=== PATIENT | female | born 1985 | race Caucasian/White ===

== ENCOUNTER 2017-11-03 16:12 | Inpatient (IN) | payer OTHER, MEDICAID ==
[2017-11-03] MEDS ORDERED: Lidocaine 1% 50 ML MDV INJECT PRN (16:46)
[2017-11-03] MEDS ORDERED: Sodium Chloride 0.9% 10 ML Syringe FLUSH PRN (16:46)
[2017-11-03] MEDS ORDERED: Nalbuphine 20 MG/1 ML Amp IVPUSH PRN (16:46)
[2017-11-03] MEDS ORDERED: Misoprostol 25 MCG (1/4 of 100 MCG) Tab VAG ONE ×2 (17:00→21:30)
[2017-11-03] MEDS ORDERED: Nalbuphine 20 MG/ML 1 ML Syringe IVPUSH PRN (17:15)
[2017-11-03] MEDS ORDERED: Penicillin G Potassium 5 MILLUNITS in Sodium Chloride 0.9% 100 ML IV SCH (20:00)
[2017-11-03] MEDS ORDERED: Penicillin G Potassium 5 MILLUNITS in Sodium Chloride 0.9% 100 ML IV ONE (20:00)
[2017-11-03] MEDS ORDERED: Oxytocin/Lactated Ringers 10 UNIT/1,000 ML BAG IV ONE (21:36)
[2017-11-03] MEDS ORDERED: Oxytocin/Lactated Ringers 10 UNIT/1,000 ML BAG IV SCH (21:42)
[2017-11-03] MEDS: Lactated Ringers 1,000 ML IV SCH (21:46)
[2017-11-04] MEDS: Penicillin G Potassium 2.5 MILLUNITS in Sodium Chloride 0.9% 100 ML IV SCH ×6 (00:15→19:56)
[2017-11-04] MEDS ORDERED: Oxytocin/Lactated Ringers 10 UNIT/1,000 ML BAG IV SCH ×2 (01:00)
[2017-11-04] MEDS ORDERED: ePHEDrine 50 MG/ML SDV IVPUSH PRN (01:01)
[2017-11-04] MEDS ORDERED: diphenhydrAMINE 50 MG/ML SDV IVPUSH PRN (01:01)
[2017-11-04] MEDS: Lactated Ringers 1,000 ML IV SCH ×2 (01:32→16:09)
[2017-11-04] MEDS: fentaNYL 100 MCG/2 ML SDV EPIDUR PRN ×2 (01:35→15:12)
[2017-11-04] MEDS: Bupivacaine/fentaNYL/NS 100 ML Bag EPIDUR SCH ×3 (01:35→20:04)
--- NOTE | 2017-11-04 01:53 | PCM.PREANE ---
Preanesthetic Assessment - Procedure Proposed Procedure: ANIBAL - Anesthesia/Transfusion/Family Hx Anesthesia History: No Prior Anesthesia Family History of Anesthesia Reaction: No Transfusion History: No Prior Transfusion(s) Additional History: Patient stated she has spinal stenosis with a herniated lumbar disc diagnosed in 2000. Denies any radiculopathies. - Review of Systems General: No Symptoms Pulmonary: No Symptoms Cardiovascular: No Symptoms Gastrointestinal: No Symptoms Neurological: No Symptoms Other: Reports: None - Physical Assessment NPO Status Date: 11/03/17 NPO Status Time: 21:00 Pulse: 83 Respiratory Rate: 20 Blood Pressure: 144/91 Vital Signs: Last Vital Signs Temp 36.4 C 11/03/17 16:47 Pulse 83 11/03/17 22:30 Resp 20 11/03/17 16:47 BP 144/91 H 11/03/17 21:30 Pulse Ox Height: 1.77 m Weight: 122.924 kg Mental Status: Alert & Oriented x3 Airway Class: Mallampati = 1 Dentition: Reports: Normal Dentition Thyro-Mental Finger Breadths: 3 Mouth Opening Finger Breadths: 3 ROM/Head Extension: Full Lungs: Clear to Auscultation, Normal Respiratory Effort Cardiovascular: Regular Rate, Regular Rhythm - Lab Values: Laboratory Last Values WBC 9.28 K/mm3 (3.98-10.04) 11/03/17 17:15 RBC 4.14 M/mm3 (3.98-5.22) 11/03/17 17:15 Hgb 11.5 gm/L (11.2-15.7) 11/03/17 17:15 Hct 34.8 % (34.1-44.9) 11/03/17 17:15 MCV 84.1 fl (79.4-94.8) 11/03/17 17:15 MCH 27.8 pg (25.6-32.2) 11/03/17 17:15 MCHC 33.0 g/dl (32.2-35.5) 11/03/17 17:15 RDW Std Deviation 43.2 fL (36.4-46.3) 11/03/17 17:15 Plt Count 144 K/mm3 (182-369) L 11/03/17 17:15 MPV 13.4 fl (9.4-12.3) H 11/03/17 17:15 Neut % (Auto) 73.2 % (34.0-71.1) H 11/03/17 17:15 Lymph % (Auto) 20.2 % (19.3-51.7) 11/03/17 17:15 [place]pherson % (Auto) 5.4 % (4.7-12.5) 11/03/17 17:15 Eos % (Auto) 0.8 (0.7-5.8) 11/03/17 17:15 Baso % (Auto) 0.2 % (0.1-1.2) 11/03/17 17:15 Neut # (Auto) 6.80 K/mm3 (1.56-6.13) H 11/03/17 17:15 Lymph # (Auto) 1.87 K/mm3 (1.18-3.74) 11/03/17 17:15 [place]pherson # (Auto) 0.50 K/mm3 (0.24-0.36) H 11/03/17 17:15 Eos # (Auto) 0.07 K/mm3 (0.04-0.36) 11/03/17 17:15 Baso # (Auto) 0.02 K/mm3 (0.01-0.08) 11/03/17 17:15 PT 9.3 SECONDS (9.5-12.1) L 11/03/17 17:15 INR < 0.93 11/03/17 17:15 APTT 24 SECONDS (24-31) 11/03/17 17:15 Fibrinogen 470 mg/dL (187-446) H 11/03/17 17:15 Fibrin Degrad Products < 5 ug/ml ug/mL (<5) 11/03/17 17:15 BUN 14 mg/dL (7-18) 11/03/17 17:15 Creatinine 0.8 mg/dL (0.55-1.02) 11/03/17 17:15 Est Cr Clr Drug Dosing 108.33 mL/min 11/03/17 17:15 Estimated GFR (MDRD) > 60 mL/min (>60) 11/03/17 17:15 Uric Acid 5.9 mg/dL (2.6-6.0) 11/03/17 17:15 AST 13 U/L (15-37) L 11/03/17 17:15 ALT 14 U/L (14-59) 11/03/17 17:15 Lactate Dehydrogenase 159 U/L (81-234) 11/03/17 17:15 Urine Color Yellow (Yellow) 11/03/17 16:30 Urine Appearance Clear (Clear) 11/03/17 16:30 Urine pH 6.0 (5.0-8.0) 11/03/17 16:30 Ur Specific [place] > or = 1.030 (1.005-1.030) 11/03/17 16:30 Urine Protein 2+ (Negative) H 11/03/17 16:30 Urine Glucose (UA) Negative (Negative) 11/03/17 16:30 Urine Ketones Negative (Negative) 11/03/17 16:30 Urine Occult Blood Negative (Negative) 11/03/17 16:30 Urine Nitrite Negative (Negative) 11/03/17 16:30 Urine Bilirubin Negative (Negative) 11/03/17 16:30 Urine Urobilinogen 0.2 (0.2-1.0) 11/03/17 16:30 Ur Leukocyte Esterase Negative (Negative) 11/03/17 16:30 Urine RBC 0-5 /hpf (0-5) 11/03/17 16:30 Urine WBC 0-5 /hpf (0-5) 11/03/17 16:30 Ur Epithelial Cells 10-20 /hpf (0-5) H 11/03/17 16:30 Urine Bacteria Rare /hpf (FEW) 11/03/17 16:30 Urine Mucus Not seen /hpf (FEW) 11/03/17 16:30 Urine Opiates Screen Negative (NEGATIVE) 11/03/17 16:30 Ur Buprenorphine Scrn Negative (NEGATIVE) 11/03/17 16:30 Ur Oxycodone Screen Negative (NEGATIVE) 11/03/17 16:30 Urine Methadone Screen Negative (NEGATIVE) 11/03/17 16:30 Ur Propoxyphene Screen Negative (NEGATIVE) 11/03/17 16:30 Ur Barbiturates Screen Negative (NEGATIVE) 11/03/17 16:30 Ur Tricyclics Screen Negative (NEGATIVE) 11/03/17 16:30 Ur Phencyclidine Scrn Negative (NEGATIVE) 11/03/17 16:30 Ur Amphetamine Screen Negative (NEGATIVE) 11/03/17 16:30 U Methamphetamines Scrn Negative (NEGATIVE) 11/03/17 16:30 U Benzodiazepines Scrn Negative (NEGATIVE) 11/03/17 16:30 U Cocaine Metab Screen Negative (NEGATIVE) 11/03/17 16:30 U Marijuana (THC) Screen Negative (NEGATIVE) 11/03/17 16:30 - Allergies Allergies/Adverse Reactions: Allergies Allergy/AdvReac Type Severity Reaction Status Date / Time No Known Allergies Allergy Verified 10/03/17 17:43 - Blood Blood Available: No Product(s) Available: None - Anesthesia Plan Pre-Op Medication Ordered: None - Acknowledgements Anesthesia Type Planned: Epidural Pt an Appropriate Candidate for the Planned Anesthesia: Yes Alternatives and Risks of Anesthesia Discussed w Pt/Guardian: Yes Pt/Guardian Understands and Agrees with Anesthesia Plan: Yes PreAnesthesia Questionnaire - Past Health History Medical/Surgical History: Denies 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 [No Known Home Meds] 11/03/17 [History] - CURRENT (IN HOUSE) MEDS Current Meds: Current Medications Diphenhydramine HCl (Benadryl) 25 mg IVPUSH Q6H PRN PRN Reason: Pruritis Ephedrine Sulfate (Ephedrine Sulfate) 5 mg IVPUSH ASDIRECTED PRN PRN Reason: Hypotension Fentanyl (Sublimaze) 100 mcg EPIDUR Q3H PRN PRN Reason: Pain Last Admin: 11/04/17 01:35 Dose: 100 mcg Fentanyl/Bupivacaine HCl (Fentanyl/Bupivacaine/Ns 2 Mcg-0.125% 100 Ml) 100 ml EPIDUR ASDIRECTED JUSTO Last Admin: 11/04/17 01:35 Dose: 100 ml Lactated Ringer's (Ringers, Lactated) 1,000 mls @ 100 mls/hr IV ASDIRECTED JUSTO Last Admin: 11/04/17 01:32 Dose: 100 mls/hr Oxytocin/Lactated Ringer's (Pitocin In Lr 10 Units/1,000 Ml) 10 unit in 1,000 mls @ 500 mls/hr IV .CONTINUOUS JUSTO Penicillin G Potassium 2.5 (millunits/ Sodium Chloride) 100 mls @ 55 mls/hr IV Q4H JUSTO Last Admin: 11/04/17 00:15 Dose: 55 mls/hr Oxytocin/Lactated Ringer's (Pitocin In Lr 10 Units/1,000 Ml) 10 unit in 1,000 mls @ 12 mls/hr IV TITRATE JUSTO; Protocol Last Titration: 11/04/17 00:55 Dose: 10 munits/min, 60 mls/hr Lidocaine HCl (Xylocaine 1%) 50 ml INJECT ASDIRECTED PRN PRN Reason: Pain Nalbuphine HCl (Nubain) 10 mg IVPUSH Q2H PRN PRN Reason: Pain (moderate 4-6) Pneumococcal Polyvalent Vaccine (Pneumovax 23) 0.5 ml SUBCUT .ONCE ONE Stop: 11/05/17 17:17 Sodium Chloride (Saline Flush) 10 ml FLUSH ASDIRECTED PRN PRN Reason: Keep Vein Open Discontinued Medications Oxytocin/Lactated Ringer's (Pitocin In Lr 10 Units/1,000 Ml) 10 unit in 1,000 mls @ 12 mls/hr IV TITRATE JUSTO; Protocol Penicillin G Potassium 5 (millunits/ Sodium Chloride) 100 mls @ 55 mls/hr IV ONETIME ONE Stop: 11/03/17 21:49 Last Admin: 11/03/17 20:33 Dose: 55 mls/hr Oxytocin/Lactated Ringer's (Pitocin In Lr 10 Units/1,000 Ml) Confirm Administered Dose 10 unit in 1,000 mls @ as directed IV .STK-MED ONE Stop: 11/03/17 21:37 Last Admin: 11/03/17 21:47 Dose: Not Given Misoprostol (Cytotec) 25 mcg VAG ONETIME ONE Stop: 11/03/17 17:01 Last Admin: 11/03/17 17:45 Dose: 25 mcg Misoprostol (Cytotec) 25 mcg VAG ONETIME ONE Stop: 11/03/17 21:31 Last Admin: 11/03/17 21:42 Dose: Not Given Nalbuphine HCl (Nubain) 10 mg IVPUSH Q2H PRN PRN Reason: Pain (moderate 4-6)
--- NOTE | 2017-11-04 06:33 | PCM.PNLD ---
Labor Progress Note - VS & Meds Vital Signs: Last Vital Signs Temp 36.4 C 11/03/17 16:47 Pulse 83 11/04/17 01:52 Resp 20 11/04/17 01:52 BP 144/91 H 11/04/17 01:52 Pulse Ox Active Medications: Current Medications Diphenhydramine HCl (Benadryl) 25 mg IVPUSH Q6H PRN PRN Reason: Pruritis Ephedrine Sulfate (Ephedrine Sulfate) 5 mg IVPUSH ASDIRECTED PRN PRN Reason: Hypotension Fentanyl (Sublimaze) 100 mcg EPIDUR Q3H PRN PRN Reason: Pain Last Admin: 11/04/17 01:35 Dose: 100 mcg Fentanyl/Bupivacaine HCl (Fentanyl/Bupivacaine/Ns 2 Mcg-0.125% 100 Ml) 100 ml EPIDUR ASDIRECTED JUSTO Last Admin: 11/04/17 01:35 Dose: 100 ml Lactated Ringer's (Ringers, Lactated) 1,000 mls @ 100 mls/hr IV ASDIRECTED JUSTO Last Admin: 11/04/17 01:32 Dose: 100 mls/hr Oxytocin/Lactated Ringer's (Pitocin In Lr 10 Units/1,000 Ml) 10 unit in 1,000 mls @ 500 mls/hr IV .CONTINUOUS JUSTO Penicillin G Potassium 2.5 (millunits/ Sodium Chloride) 100 mls @ 55 mls/hr IV Q4H JUSTO Last Admin: 11/04/17 04:01 Dose: 55 mls/hr Oxytocin/Lactated Ringer's (Pitocin In Lr 10 Units/1,000 Ml) 10 unit in 1,000 mls @ 12 mls/hr IV TITRATE JUSTO; Protocol Last Titration: 11/04/17 03:34 Dose: 18 munits/min, 108 mls/hr Lidocaine HCl (Xylocaine 1%) 50 ml INJECT ASDIRECTED PRN PRN Reason: Pain Nalbuphine HCl (Nubain) 10 mg IVPUSH Q2H PRN PRN Reason: Pain (moderate 4-6) Pneumococcal Polyvalent Vaccine (Pneumovax 23) 0.5 ml SUBCUT .ONCE ONE Stop: 11/05/17 17:17 Sodium Chloride (Saline Flush) 10 ml FLUSH ASDIRECTED PRN PRN Reason: Keep Vein Open Discontinued Medications Oxytocin/Lactated Ringer's (Pitocin In Lr 10 Units/1,000 Ml) 10 unit in 1,000 mls @ 12 mls/hr IV TITRATE JUSTO; Protocol Penicillin G Potassium 5 (millunits/ Sodium Chloride) 100 mls @ 55 mls/hr IV ONETIME ONE Stop: 11/03/17 21:49 Last Admin: 11/03/17 20:33 Dose: 55 mls/hr Oxytocin/Lactated Ringer's (Pitocin In Lr 10 Units/1,000 Ml) Confirm Administered Dose 10 unit in 1,000 mls @ as directed IV .STK-MED ONE Stop: 11/03/17 21:37 Last Admin: 11/03/17 21:47 Dose: Not Given Misoprostol (Cytotec) 25 mcg VAG ONETIME ONE Stop: 11/03/17 17:01 Last Admin: 11/03/17 17:45 Dose: 25 mcg Misoprostol (Cytotec) 25 mcg VAG ONETIME ONE Stop: 11/03/17 21:31 Last Admin: 11/03/17 21:42 Dose: Not Given Nalbuphine HCl (Nubain) 10 mg IVPUSH Q2H PRN PRN Reason: Pain (moderate 4-6) - Uterine Contractions Uterine Monitoring Mode: External [place] Contraction Intensity: Mild to Moderate Uterine Resting Tone: Soft - Monitoring Monitor Mode: External Ultrasound Heart Rate (FHR) Baseline: 150 Heart Rate (FHR) Variability: Moderate (6-25 bmp) Decelerations: Late (occasional lates over past 2-4 hours) Strip Review: Category I - Vaginal Exam Dilation (cm): 4 Effacement (Percent): 80 Station: -3 Cervical Position: Midposition Sterile Vaginal Exam Performed By: Ara Méndez
--- NOTE | 2017-11-04 06:34 | PCM.SN ---
- Free Text/Narrative Note: Sent from clinic. See clinic h&p. Arrived at 1630. Doing well. IV in place. Blood pressures here similar.
[2017-11-04] MEDS: Oxytocin/Lactated Ringers 20 UNIT/1,000 ML BAG IV SCH ×2 (08:15→19:54)
[2017-11-04] MEDS ORDERED: Bupivacaine 0.25% 10 ML SDV ONE (22:00)
--- NOTE | 2017-11-04 22:00 | PCM.SN ---
- Free Text/Narrative Note: Stage I- patient presented from clinic for induction of labor after mild range blood pressures therefore diagnosed with mild preeclampsia at 39 weeks and 2 days. Induction of labor initiated with Cytotec transitioned to Pitocin. Progressed to complete with overall reassuring heart tones. Epidural for anesthesia Stage II - spontaneous vaginal delivery of viable male weight 4330 g Apgars 3 at 1 minute and 8 at 5 minutes at 2121. Head delivered in controlled manner over small second degree midline episiotomy. Heart tones reassuring until immediately prior to delivery of the head difficult to monitor heart rate therefore consented for episiotomy which was performed. Body and shoulders followed without difficulty cord was clamped and cut and a fairly limp was taken to the warmer to awaiting nursery nurse. Dr. Hallman was present at less than a minute of age for further resuscitative efforts please see their notes for further detail. Cord blood collected Stage III - spontaneous vaginal delivery of intact placenta, three-vessel cord, Pitocin initiated. Estimated blood loss 400 mL. Second-degree midline episiotomy repaired with 3-0 Vicryl
[2017-11-04] MEDS ORDERED: Witch Hazel Medicated Pads 100/Jar TOP PRN (22:36)
[2017-11-04] MEDS ORDERED: Lanolin 100% Cream 7 GM Tube TOP PRN (22:36)
[2017-11-04] MEDS ORDERED: Docusate Sodium 100 MG Cap PO PRN (22:36)
[2017-11-04] MEDS ORDERED: Simethicone 80 MG Tab.Chew PO PRN (22:36)
[2017-11-04] MEDS ORDERED: Benzocaine/Menthol 20%-0.5% Spray 56 GM Canister TOP PRN (22:36)
[2017-11-04] MEDS: Ibuprofen 600 MG Tab PO PRN (23:15)
[2017-11-05] MEDS ORDERED: Ammonia Inhalant Amp ONE (00:05)
[2017-11-05] MEDS: Acetaminophen 325 MG Tab PO PRN ×3 (04:02→21:24)
--- NOTE | 2017-11-05 06:01 | PCM.PNPP ---
- General Info Date of Service: 11/05/17 Functional Status: Reports: Pain Controlled - Review of Systems General: Reports: No Symptoms HEENT: Reports: No Symptoms Pulmonary: Reports: No Symptoms Cardiovascular: Reports: No Symptoms Gastrointestinal: Reports: No Symptoms Genitourinary: Reports: No Symptoms Musculoskeletal: Reports: No Symptoms Skin: Reports: No Symptoms Neurological: Reports: No Symptoms Psychiatric: Reports: No Symptoms - General Info Date of Service: 11/05/17 - Patient Data Vital Signs - Most Recent: Last Vital Signs Temp 36.3 C 11/05/17 04:03 Pulse 90 11/05/17 04:03 Resp 20 11/04/17 01:52 BP 134/78 11/05/17 04:03 Pulse Ox 99 11/05/17 04:03 Weight - Most Recent: 122.924 kg I&O - Last 24 Hours: Intake & Output 11/04/17 11/04/17 11/05/17 14:59 22:59 06:59 Intake Total 682 615 0681 Balance 508 557 1587 Med Orders - Current: Current Medications Acetaminophen (Tylenol) 650 mg PO Q4H PRN PRN Reason: Pain Last Admin: 11/05/17 04:02 Dose: 650 mg Benzocaine/Menthol (Dermoplast Pain Relief [place]) 0 gm TOP ASDIRECTED PRN PRN Reason: Perineal Comfort Measure Last Admin: 11/04/17 23:16 Dose: 1 can Docusate Sodium (Colace) 100 mg PO BID PRN PRN Reason: Constipation Emollient Ointment (Lansinoh Hpa) 0 gm TOP ASDIRECTED PRN PRN Reason: Sore Nipples Ibuprofen (Motrin) 600 mg PO Q6H PRN PRN Reason: Mild pain or fever Last Admin: 11/04/17 23:15 Dose: 600 mg Simethicone (Simethicone) 80 mg PO Q4H PRN PRN Reason: Gas Witch Shruthi (Tucks) 1 pad TOP ASDIRECTED PRN PRN Reason: Hemorrhoid pain Last Admin: 11/04/17 23:16 Dose: 1 can Discontinued Medications Ammonia (Aromatic Spirit) (Ammonia Aromatic Inhalant) Confirm Administered Dose 1 ampule .ROUTE .STK-MED ONE Stop: 11/05/17 00:06 Last Admin: 11/05/17 03:42 Dose: Not Given Diphenhydramine HCl (Benadryl) 25 mg IVPUSH Q6H PRN PRN Reason: Pruritis Ephedrine Sulfate (Ephedrine Sulfate) 5 mg IVPUSH ASDIRECTED PRN PRN Reason: Hypotension Fentanyl (Sublimaze) 100 mcg EPIDUR Q3H PRN PRN Reason: Pain Last Admin: 11/04/17 15:12 Dose: 100 mcg Fentanyl/Bupivacaine HCl (Fentanyl/Bupivacaine/Ns 2 Mcg-0.125% 100 Ml) 100 ml EPIDUR ASDIRECTED JUSTO Last Admin: 11/04/17 20:04 Dose: 100 ml Lactated Ringer's (Ringers, Lactated) 1,000 mls @ 100 mls/hr IV ASDIRECTED JUSTO Last Admin: 11/04/17 16:09 Dose: 100 mls/hr Oxytocin/Lactated Ringer's (Pitocin In Lr 10 Units/1,000 Ml) 10 unit in 1,000 mls @ 12 mls/hr IV TITRATE JUSTO; Protocol Oxytocin/Lactated Ringer's (Pitocin In Lr 10 Units/1,000 Ml) 10 unit in 1,000 mls @ 500 mls/hr IV .CONTINUOUS JUSTO Penicillin G Potassium 2.5 (millunits/ Sodium Chloride) 100 mls @ 55 mls/hr IV Q4H JUSTO Last Admin: 11/04/17 19:56 Dose: 55 mls/hr Penicillin G Potassium 5 (millunits/ Sodium Chloride) 100 mls @ 55 mls/hr IV ONETIME ONE Stop: 11/03/17 21:49 Last Admin: 11/03/17 20:33 Dose: 55 mls/hr Oxytocin/Lactated Ringer's (Pitocin In Lr 10 Units/1,000 Ml) Confirm Administered Dose 10 unit in 1,000 mls @ as directed IV .STK-MED ONE Stop: 11/03/17 21:37 Last Admin: 11/03/17 21:47 Dose: Not Given Oxytocin/Lactated Ringer's (Pitocin In Lr 10 Units/1,000 Ml) 10 unit in 1,000 mls @ 12 mls/hr IV TITRATE JUSTO; Protocol Last Titration: 11/04/17 06:51 Dose: 20 munits/min, 120 mls/hr Oxytocin 20 unit/ Lactated (Ringer's) 1,002 mls @ 60.12 mls/hr IV TITRATE JUSTO; Protocol Oxytocin/Lactated Ringer's (Pitocin In Lr 20 Units/1,000 Ml) 20 unit in 1,000 mls @ 60 mls/hr IV TITRATE JUSTO; Protocol Last Admin: 11/04/17 19:54 Dose: 60 mls/hr Lidocaine HCl (Xylocaine 1%) 50 ml INJECT ASDIRECTED PRN PRN Reason: Pain Misoprostol (Cytotec) 25 mcg VAG ONETIME ONE Stop: 11/03/17 17:01 Last Admin: 11/03/17 17:45 Dose: 25 mcg Misoprostol (Cytotec) 25 mcg VAG ONETIME ONE Stop: 11/03/17 21:31 Last Admin: 11/03/17 21:42 Dose: Not Given Nalbuphine HCl (Nubain) 10 mg IVPUSH Q2H PRN PRN Reason: Pain (moderate 4-6) Nalbuphine HCl (Nubain) 10 mg IVPUSH Q2H PRN PRN Reason: Pain (moderate 4-6) Pneumococcal Polyvalent Vaccine (Pneumovax 23) 0.5 ml SUBCUT .ONCE ONE Stop: 11/05/17 17:17 Sodium Chloride (Saline Flush) 10 ml FLUSH ASDIRECTED PRN PRN Reason: Keep Vein Open - Infant Interaction Infant Disposition, : [place] in Room with Family Support Person: Sister - Recovery Exam Fundal Tone: Firm Fundal Level: At Umbilicus Fundal Placement: Midline Lochia Amount: Small Lochia Color: Rubra/Red Bladder Status: Voiding - Exam General: Other (sleepy) Lungs: Normal Respiratory Effort GI/Abdominal Exam: Soft, Non-Tender Skin: Warm, Dry, Intact Neurological: No New Focal Deficit Psy/Mental Status: Normal Affect, Normal Mood - Problem List Review Problem List Initiated/Reviewed/Updated: Yes - My Orders Last 24 Hours: My Active Orders 11/04/17 22:36 Patient Status [ADT] Routine Activity as Tolerated [RC] PER UNIT ROUTINE Vital Signs [RC] 09,15,21,03 Benzocaine/Menthol [Dermoplast Pain Relief [place]] See Dose Instructions TOP ASDIRECTED PRN Docusate Sodium [Colace] 100 mg PO BID PRN Ibuprofen [Motrin] 600 mg PO Q6H PRN Lanolin [Lansinoh HPA] See Dose Instructions TOP ASDIRECTED PRN Simethicone 80 mg PO Q4H PRN Dora Hawkins [Tucks] 1 pad TOP ASDIRECTED PRN Assess Lochia [WOMSER] Per Unit Routine Assess Uterine Involution [WOMSER] Per Unit Routine Breast Pump [WOMSER] Per Unit Routine Heat Therapy [OM.PC] PRN Medication Administration Instruction [OM.PC] Routine Perineal Care [OM.PC] Per Unit Routine Sitz Bath [OM.PC] Per Unit Routine 11/05/17 03:45 Acetaminophen [Tylenol] 650 mg PO Q4H PRN 11/05/17 22:36 Heat Therapy [OM.PC] PRN - Assessment Assessment:: day one. Doing well. Blood pressures improved. No headaches. Probable discharge tomorrow.
[2017-11-05] MEDS: Ibuprofen 600 MG Tab PO PRN ×3 (06:09→18:20)
[2017-11-05] MEDS ORDERED: Pneumococcal Polyvalent-23 Vaccine 0.5 ML SDV SUBCUT ONE (17:16)
--- NOTE | 2017-11-05 17:28 | PCM48HPAN ---
Post Anesthesia Note - EVALUATION WITHIN 48HRS OF ANESTHETIC Vital Signs in Normal Range: Yes Patient Participated in Evaluation: Yes Respiratory Function Stable: Yes Airway Patent: Yes Cardiovascular Function Stable: Yes Hydration Status Stable: Yes Pain Control Satisfactory: Yes (Patient states back and buttocks are still having tenderness.) Nausea and Vomiting Control Satisfactory: Yes Mental Status Recovered: Yes
[2017-11-06] MEDS: Ibuprofen 600 MG Tab PO PRN ×2 (00:07→07:15)
[2017-11-06] MEDS: Acetaminophen 325 MG Tab PO PRN (03:07)
--- NOTE | 2017-11-06 07:39 | PCM.DCSUM1 ---
Discharge Summary - Hospital Course Brief History: Admitted for mild pre-eclampsia. Diagnosis: Stroke: No - Discharge Data Discharge Date: 11/06/17 Discharge Disposition: Home, Self-Care 01 Condition: Good - Patient Summary/Data Consults: Consultations 11/05/17 11:15 Consult to Concreter [CONS] Routine - Patient Instructions Diet: Usual Diet as Tolerated Activity: No Strenuous Activities Driving: May Drive Today Showering/Bathing: May Shower Notify Provider of: Fever, Increased Pain, Swelling and Redness, Drainage, Nausea and/or Vomiting - Discharge Plan Home Medications: Home Meds . [No Known Home Meds] 11/03/17 [History] Referrals: Ara Méndez MD [Primary Care Provider] - (2 weeks) - Discharge Summary/Plan Comment DC Time >30 min.: No - General Info Date of Service: 11/06/17 Functional Status: Reports: Pain Controlled - Review of Systems General: Reports: No Symptoms HEENT: Reports: No Symptoms Pulmonary: Reports: No Symptoms Cardiovascular: Reports: No Symptoms Gastrointestinal: Reports: No Symptoms Genitourinary: Reports: No Symptoms Musculoskeletal: Reports: No Symptoms Skin: Reports: No Symptoms Neurological: Reports: No Symptoms Psychiatric: Reports: No Symptoms - Patient Data Vitals - Most Recent: Last Vital Signs Temp 36.9 C 11/06/17 03:05 Pulse 83 11/06/17 03:05 Resp 18 11/06/17 03:05 BP 134/78 11/06/17 03:05 Pulse Ox 100 11/06/17 03:05 Weight - Most Recent: 122.924 kg I&O - Last 24 hours: Intake & Output 11/05/17 11/06/17 11/06/17 22:59 06:59 14:59 Intake Total 60 Balance 60 Med Orders - Current: Current Medications Acetaminophen (Tylenol) 650 mg PO Q4H PRN PRN Reason: Pain Last Admin: 11/06/17 03:07 Dose: 650 mg Benzocaine/Menthol (Dermoplast Pain Relief [place]) 0 gm TOP ASDIRECTED PRN PRN Reason: Perineal Comfort Measure Last Admin: 11/04/17 23:16 Dose: 1 can Docusate Sodium (Colace) 100 mg PO BID PRN PRN Reason: Constipation Emollient Ointment (Lansinoh Hpa) 0 gm TOP ASDIRECTED PRN PRN Reason: Sore Nipples Ibuprofen (Motrin) 600 mg PO Q6H PRN PRN Reason: Mild pain or fever Last Admin: 11/06/17 07:15 Dose: 600 mg Simethicone (Simethicone) 80 mg PO Q4H PRN PRN Reason: Gas Witch Shruthi (Tucks) 1 pad TOP ASDIRECTED PRN PRN Reason: Hemorrhoid pain Last Admin: 11/04/17 23:16 Dose: 1 can Discontinued Medications Ammonia (Aromatic Spirit) (Ammonia Aromatic Inhalant) Confirm Administered Dose 1 ampule .ROUTE .STK-MED ONE Stop: 11/05/17 00:06 Last Admin: 11/05/17 03:42 Dose: Not Given Diphenhydramine HCl (Benadryl) 25 mg IVPUSH Q6H PRN PRN Reason: Pruritis Ephedrine Sulfate (Ephedrine Sulfate) 5 mg IVPUSH ASDIRECTED PRN PRN Reason: Hypotension Fentanyl (Sublimaze) 100 mcg EPIDUR Q3H PRN PRN Reason: Pain Last Admin: 11/04/17 15:12 Dose: 100 mcg Fentanyl/Bupivacaine HCl (Fentanyl/Bupivacaine/Ns 2 Mcg-0.125% 100 Ml) 100 ml EPIDUR ASDIRECTED JUSTO Last Admin: 11/04/17 20:04 Dose: 100 ml Lactated Ringer's (Ringers, Lactated) 1,000 mls @ 100 mls/hr IV ASDIRECTED JUSTO Last Admin: 11/04/17 16:09 Dose: 100 mls/hr Oxytocin/Lactated Ringer's (Pitocin In Lr 10 Units/1,000 Ml) 10 unit in 1,000 mls @ 12 mls/hr IV TITRATE JUSTO; Protocol Oxytocin/Lactated Ringer's (Pitocin In Lr 10 Units/1,000 Ml) 10 unit in 1,000 mls @ 500 mls/hr IV .CONTINUOUS JUSTO Penicillin G Potassium 2.5 (millunits/ Sodium Chloride) 100 mls @ 55 mls/hr IV Q4H JUSTO Last Admin: 11/04/17 19:56 Dose: 55 mls/hr Penicillin G Potassium 5 (millunits/ Sodium Chloride) 100 mls @ 55 mls/hr IV ONETIME ONE Stop: 11/03/17 21:49 Last Admin: 11/03/17 20:33 Dose: 55 mls/hr Oxytocin/Lactated Ringer's (Pitocin In Lr 10 Units/1,000 Ml) Confirm Administered Dose 10 unit in 1,000 mls @ as directed IV .STK-MED ONE Stop: 11/03/17 21:37 Last Admin: 11/03/17 21:47 Dose: Not Given Oxytocin/Lactated Ringer's (Pitocin In Lr 10 Units/1,000 Ml) 10 unit in 1,000 mls @ 12 mls/hr IV TITRATE JUSTO; Protocol Last Titration: 11/04/17 06:51 Dose: 20 munits/min, 120 mls/hr Oxytocin 20 unit/ Lactated (Ringer's) 1,002 mls @ 60.12 mls/hr IV TITRATE JUSTO; Protocol Oxytocin/Lactated Ringer's (Pitocin In Lr 20 Units/1,000 Ml) 20 unit in 1,000 mls @ 60 mls/hr IV TITRATE JUSTO; Protocol Last Admin: 11/04/17 19:54 Dose: 60 mls/hr Lidocaine HCl (Xylocaine 1%) 50 ml INJECT ASDIRECTED PRN PRN Reason: Pain Misoprostol (Cytotec) 25 mcg VAG ONETIME ONE Stop: 11/03/17 17:01 Last Admin: 11/03/17 17:45 Dose: 25 mcg Misoprostol (Cytotec) 25 mcg VAG ONETIME ONE Stop: 11/03/17 21:31 Last Admin: 11/03/17 21:42 Dose: Not Given Nalbuphine HCl (Nubain) 10 mg IVPUSH Q2H PRN PRN Reason: Pain (moderate 4-6) Nalbuphine HCl (Nubain) 10 mg IVPUSH Q2H PRN PRN Reason: Pain (moderate 4-6) Pneumococcal Polyvalent Vaccine (Pneumovax 23) 0.5 ml SUBCUT .ONCE ONE Stop: 11/05/17 17:17 Last Admin: 11/05/17 20:44 Dose: 0.5 ml Sodium Chloride (Saline Flush) 10 ml FLUSH ASDIRECTED PRN PRN Reason: Keep Vein Open - Exam General: Reports: Alert, Oriented HEENT: Reports: Pupils Equal, Pupils Reactive Neck: Reports: Supple Lungs: Reports: Clear to Auscultation, Normal Respiratory Effort Cardiovascular: Reports: Regular Rate, Regular Rhythm GI/Abdominal Exam: Normal Bowel Sounds, Soft, Non-Tender, No Organomegaly Rectal (Female) Exam: Normal Exam Back Exam: Reports: Normal Inspection, Full Range of Motion Extremities: Normal Inspection, Normal Range of Motion, Non-Tender, No Pedal Edema, Normal Capillary Refill Skin: Reports: Warm, Dry, Intact Wound/Incisions: Reports: Healing Well Neurological: Reports: No New Focal Deficit Psy/Mental Status: Reports: Alert, Normal Affect, Normal Mood
== END 2017-11-06 13:00 | disposition home or self-care (01) | DRG 775 ==
LOC: JD.OBCHECK 16:12 → JD.OB 16:27 → OBSVTOIN 11-04 21:21 → JD.OB 11-04 21:21
PROVIDERS: ADMIT Obstetrics & Gynecology; ATTEND Obstetrics & Gynecology
PROC: 10E0XZZ Delivery of Products of Conception, External Approach (ICD-10-PCS; principal; 2017-11-04)
PROC: 0W8NXZZ Division of Female Perineum, External Approach (ICD-10-PCS; 2017-11-04)
PROC: 3E033VJ Introduction of Other Hormone into Peripheral Vein, Percutaneous Approach (ICD-10-PCS; 2017-11-04)
PROC: 3E0P7VZ Introduction of Hormone into Female Reproductive, Via Natural or Artificial Opening (ICD-10-PCS; 2017-11-04)
PROC: 00HU33Z Insertion of Infusion Device into Spinal Canal, Percutaneous Approach (ICD-10-PCS; 2017-11-04)
PROC: 3E0R3BZ Introduction of Anesthetic Agent into Spinal Canal, Percutaneous Approach (ICD-10-PCS; 2017-11-04)
PROC: 3E0234Z Introduction of Serum, Toxoid and Vaccine into Muscle, Percutaneous Approach (ICD-10-PCS; 2017-11-05)
DX: O14.04 Mild to moderate pre-eclampsia, complicating childbirth (principal); Z37.0 Single live birth; Z3A.39 39 weeks gestation of pregnancy; O75.89 Other specified complications of labor and delivery; M51.26 Other intervertebral disc displacement, lumbar region; M48.061 Spinal stenosis, lumbar region without neurogenic claudication; Z87.891 Personal history of nicotine dependence; Z23 Encounter for immunization
CPT/HCPCS: 36415; 51702; 59025; 59300; 59409; 80306; 81001; 82565; 83615; 84450; 84460; 84520; 84550; 85025; 85362; 85384; 85610; 85730; 90732; 93005; A9270-GY; G0009; J2540; J2590; J3010; J7030; J7120

== ENCOUNTER 2018-09-01 09:57 | Inpatient (IN) | payer MEDICAID, OTHER ==
[2018-09-01] MEDS ORDERED: Citric Acid/Sodium Citrate Solution 30 ML Cup PO ONE (10:05)
[2018-09-01] MEDS ORDERED: Nalbuphine 20 MG/ML 1 ML Syringe IVPUSH PRN (10:05)
[2018-09-01] MEDS ORDERED: Sodium Chloride 0.9% 10 ML Syringe FLUSH PRN (10:05)
[2018-09-01] MEDS ORDERED: Metoclopramide 10 MG/2 ML SDV IVPUSH ONE (10:05)
[2018-09-01] MEDS ORDERED: Lactated Ringers 1,000 ML IV SCH (10:15)
[2018-09-01] MEDS ORDERED: Oxytocin/Lactated Ringers 10 UNIT/1,000 ML BAG IV SCH (10:15)
--- NOTE | 2018-09-01 10:22 | PCM.PREANE ---
Preanesthetic Assessment - Procedure Proposed Procedure: csection - Anesthesia/Transfusion/Family Hx Anesthesia History: No Prior Anesthesia Family History of Anesthesia Reaction: No Transfusion History: No Prior Transfusion(s) - Review of Systems General: No Symptoms Pulmonary: No Symptoms Cardiovascular: No Symptoms Gastrointestinal: No Symptoms Neurological: No Symptoms Other: Reports: Diabetes (gestational diabetes) - Physical Assessment NPO Status Date: 09/01/18 NPO Status Time: 08:00 (juice couple sips) Pulse: 89 O2 Sat by Pulse Oximetry: 98 Respiratory Rate: 20 Blood Pressure: 165/100 Height: 5 ft 9 in Weight: 138.119 kg ASA Class: 2E Mental Status: Alert & Oriented x3 Airway Class: Mallampati = 1 Dentition: Reports: Normal Dentition Thyro-Mental Finger Breadths: 3 Mouth Opening Finger Breadths: 3 ROM/Head Extension: Full Lungs: Clear to Auscultation, Normal Respiratory Effort Cardiovascular: Regular Rate, Regular Rhythm - Allergies Allergies/Adverse Reactions: Allergies Allergy/AdvReac Type Severity Reaction Status Date / Time No Known Allergies Allergy Verified 10/03/17 17:43 - Blood Blood Available: No - Acknowledgements Anesthesia Type Planned: Spinal Pt an Appropriate Candidate for the Planned Anesthesia: Yes Alternatives and Risks of Anesthesia Discussed w Pt/Guardian: Yes Pt/Guardian Understands and Agrees with Anesthesia Plan: Yes PreAnesthesia Questionnaire - Past Health History Medical/Surgical History: Denies Medical/Surgical History Cardiovascular History: Reports: None Respiratory History: Reports: None Gastrointestinal History: Reports: GERD (with preg) TRANSPORTATION ESCORT History: Reports: , Other (See Below) (pre eclampsia) : 2 (36 weeks twins) Para: 1 Endocrine/Metabolic History: Reports: Obesity/BMI 30+ - Infectious Disease History Infectious Disease History: Reports: Other (See Below) Other Infectious Disease History: Gonorrhea, Chlamydia - History Comment History Comment: levomir diabetes med - SUBSTANCE USE Smoking Status *Q: Former Smoker (quit 1 year ago) Tobacco Use Within Last Twelve Months: No Second Hand Smoke Exposure: No Days Per Week of Alcohol Use: 0 Recreational Drug Use History: No - HOME MEDS Home Medications: Home Meds . [No Known Home Meds] 11/03/17 [History] - CURRENT (IN HOUSE) MEDS Current Meds: Current Medications Cefazolin Sodium/Dextrose 1 gm (/ Premix) 50 mls @ 100 mls/hr IV ONETIME ONE Stop: 09/01/18 10:59 Cefazolin Sodium/Dextrose 2 gm (/ Premix) 50 mls @ 100 mls/hr IV ONETIME ONE Stop: 09/01/18 10:59 Lactated Ringer's (Ringers, Lactated) 1,000 mls @ 125 mls/hr IV ASDIRECTED JUSTO Oxytocin/Lactated Ringer's (Pitocin In Lr 10 Units/1,000 Ml) 10 unit in 1,000 mls @ 100 mls/hr IV ASDIRECTED JUSTO; Protocol Nalbuphine HCl (Nubain) 10 mg IVPUSH Q2H PRN PRN Reason: pain Sodium Chloride (Saline Flush) 10 ml FLUSH ASDIRECTED PRN PRN Reason: Keep Vein Open Discontinued Medications Citric Acid/Sodium Citrate (Bicitra Solution) 30 ml PO ONETIME ONE Stop: 09/01/18 10:06 Metoclopramide HCl (Reglan) 10 mg IVPUSH ONETIME ONE Stop: 09/01/18 10:06
[2018-09-01] MEDS ORDERED: ceFAZolin 1 GM in Premix Bag 1 BAG IV ONE (10:30)
[2018-09-01] MEDS ORDERED: ceFAZolin 2 GM in Premix Bag 1 BAG IV ONE (10:30)
[2018-09-01] MEDS ORDERED: ceFAZolin 1 GM Vial ONE ×2 (10:31)
[2018-09-01] MEDS ORDERED: Lactated Ringers 2,000 ML ONE (10:31)
[2018-09-01] MEDS ORDERED: Oxytocin 10 Units/1 ML SDV ONE (10:31)
[2018-09-01] MEDS ORDERED: Ondansetron 4 MG/2 ML SDV ONE (10:31)
[2018-09-01] MEDS ORDERED: Morphine PF 1 MG/ML Amp ONE (10:31)
[2018-09-01] MEDS ORDERED: Ketorolac 30 MG/ML SDV ONE (10:31)
[2018-09-01] MEDS ORDERED: Bupivacaine 0.5% 30 ML SDV ONE (10:35)
--- NOTE | 2018-09-01 10:46 | PCM.LDHP ---
L&D History of Present Illness - General Date of Service: 09/01/18 Admit Problem/Dx: Patient Status Order with Admit Dx/Problem 09/01/18 10:05 Patient Status [ADT] Routine Admission Diagnosis/Problem Admission Diagnosis/Problem section Source of Information: Patient History Limitations: Reports: No Limitations - History of Present Illness Introduction:: 33 year old at 36w4 with elevated blood pressures in clinic. Twin . Has had gestational diabetes this newly recommended to be started on insulin. - Related Data Allergies/Adverse Reactions: Allergies Allergy/AdvReac Type Severity Reaction Status Date / Time No Known Allergies Allergy Verified 10/03/17 17:43 Home Medications: Home Meds . [No Known Home Meds] 11/03/17 [History] Past Medical History - Past Health History Medical/Surgical History: Denies Medical/Surgical History Cardiovascular History: Reports: None Respiratory History: Reports: None Gastrointestinal History: Reports: GERD (with preg) CROP PULLER History: Reports: , Other (See Below) (pre eclampsia) Psychiatric History: Reports: Anxiety Endocrine/Metabolic History: Reports: Obesity/BMI 30+ - Infectious Disease History Infectious Disease History: Reports: Other (See Below) Other Infectious Disease History: Gonorrhea, Chlamydia - History Comment History Comment: levomir diabetes med Social & Family History - Family History Family Medical History: Noncontributory - Tobacco Use Smoking Status *Q: Former Smoker (quit 1 year ago) Second Hand Smoke Exposure: No - Caffeine Use Caffeine Use: Reports: Soda - Alcohol Use Days Per Week of Alcohol Use: 0 - Recreational Drug Use Recreational Drug Use: No H&P Review of Systems - Review of Systems: Review Of Systems: See Below General: Reports: No Symptoms HEENT: Reports: No Symptoms Pulmonary: Reports: No Symptoms Cardiovascular: Reports: No Symptoms Gastrointestinal: Reports: No Symptoms Genitourinary: Reports: No Symptoms Musculoskeletal: Reports: No Symptoms Skin: Reports: No Symptoms Psychiatric: Reports: No Symptoms Neurological: Reports: No Symptoms Hematologic/Lymphatic: Reports: No Symptoms Immunologic: Reports: No Symptoms L&D Exam - Exam Exam: See Below - Vital Signs Vital Signs: Last Vital Signs Temp Pulse 89 09/01/18 10:27 Resp 20 09/01/18 10:27 BP 165/100 H 09/01/18 10:27 Pulse Ox 98 09/01/18 10:27 Weight: 138.119 kg - OB Specific Contraction Intensity: Mild Movement: Active Heart Tones: Present Presentation: Breech - Exam General: Alert, Oriented HEENT: PERRLA, Conjunctiva Clear, EACs Clear, EOMI, Hearing Intact, Mucosa Moist & Porcupine, Nares Patent, Normal Nasal Septum, Posterior Pharynx Clear, TMs Clear Neck: Supple, Trachea Midline Lungs: Clear to Auscultation, Normal Respiratory Effort Cardiovascular: Regular Rate, Regular Rhythm GI/Abdominal Exam: Normal Bowel Sounds, Soft, Non-Tender, No Organomegaly, No Distention, No Abnormal Bruit, No Mass, Pelvis Stable Back Exam: Normal Inspection, Full Range of Motion Extremities: Normal Inspection, Normal Range of Motion, Non-Tender, No Pedal Edema, Normal Capillary Refill Skin: Warm, Dry, Intact Neurological: Cranial Nerves Intact, Reflexes Equal Bilateral Psychiatric: Alert, Normal Affect, Normal Mood Problem List Initiated/Reviewed/Updated: Yes Orders Last 24hrs: Active Orders 24 hr Category Date Time Status Patient Status [ADT] Routine ADT 09/01/18 10:05 Active Communication Order [RC] ROUTINE Care 09/01/18 10:05 Active Heart Tones [RC] PER UNIT ROUTINE Care 09/01/18 10:05 Active Non Stress Test [RC] PER UNIT ROUTINE Care 09/01/18 10:05 Active Peripheral IV Care [RC] . DIRECTED Care 09/01/18 10:05 Active Procedure Site Prep Instruct [RC] ASDIRECTED Care 09/01/18 10:05 Active Verify Patient Consent Obtain [RC] PER UNIT ROUTINE Care 09/01/18 10:05 Active Vital Signs [RC] PFP Care 09/01/18 10:05 Active ALANINE AMINOTRANSFERASE,ALT [CHEM] Stat Lab 09/01/18 10:23 Received ASPARTATE AMNIOTRANSFERASE,AST [CHEM] Stat Lab 09/01/18 10:23 Received BLOOD UREA NITROGEN,BUN [CHEM] Stat Lab 09/01/18 10:23 Received CBC WITH AUTO DIFF [HEME] Stat Lab 09/01/18 10:23 Received CREATININE W/GFR [CHEM] Stat Lab 09/01/18 10:23 Received LACTATE DEHYDROGENASE,LDH [CHEM] Stat Lab 09/01/18 10:23 Received PROTEIN/CREATININE RATIO,URINE [URCHEM] Stat Lab 09/01/18 10:05 Ordered TYPE AND SCREEN [BBK] Routine Lab 09/01/18 10:23 Received UA W/O MICROSCOPIC [URIN] Stat Lab 09/01/18 10:05 Ordered URIC ACID [CHEM] Stat Lab 09/01/18 10:23 Received Lactated Ringers [Ringers, Lactated] 1,000 ml Med 09/01/18 10:15 Active IV ASDIRECTED Nalbuphine [Nubain] Med 09/01/18 10:05 Active 10 mg IVPUSH Q2H PRN Oxytocin/Lactated Ringers [Pitocin in LR 10 Units/1,000 Med 09/01/18 10:15 Active ML] 10 unit in 1,000 ml IV ASDIRECTED Sodium Chloride 0.9% [Saline Flush] Med 09/01/18 10:05 Active 10 ml FLUSH ASDIRECTED PRN ceFAZolin [Ancef] 1 gm Med 09/01/18 10:30 Active Premix Bag 1 bag IV ONETIME ceFAZolin [Ancef] 2 gm Med 09/01/18 10:30 Active Premix Bag 1 bag IV ONETIME PIH Panel [OM.PC] Stat Oth 09/01/18 10:05 Ordered Peripheral IV Insertion Adult [OM.PC] Routine Oth 09/01/18 10:05 Ordered Schedule Procedure [COMM] Per Unit Routine Oth 09/01/18 10:05 Ordered Resuscitation Status Routine Resus Stat 09/01/18 10:05 Ordered Medication Orders Cefazolin Sodium/Dextrose 1 gm (/ Premix) 50 mls @ 100 mls/hr IV ONETIME ONE Stop: 09/01/18 10:59 Cefazolin Sodium/Dextrose 2 gm (/ Premix) 50 mls @ 100 mls/hr IV ONETIME ONE Stop: 09/01/18 10:59 Lactated Ringer's (Ringers, Lactated) 1,000 mls @ 125 mls/hr IV ASDIRECTED JUSTO Oxytocin/Lactated Ringer's (Pitocin In Lr 10 Units/1,000 Ml) 10 unit in 1,000 mls @ 100 mls/hr IV ASDIRECTED JUSTO; Protocol Nalbuphine HCl (Nubain) 10 mg IVPUSH Q2H PRN PRN Reason: pain Sodium Chloride (Saline Flush) 10 ml FLUSH ASDIRECTED PRN PRN Reason: Keep Vein Open
[2018-09-01] MEDS ORDERED: Aminophylline 250 MG/10 ML SDV ONE (11:47)
[2018-09-01] MEDS ORDERED: fentaNYL 100 MCG/2 ML SDV ONE (11:50)
[2018-09-01] MEDS ORDERED: Phenylephrine/Normal Saline 100 MCG/ML 10 ML Syringe ONE (12:01)
--- NOTE | 2018-09-01 12:19 | PCM.OPNOTE ---
- General Post-Op/Procedure Note Date of Surgery/Procedure: 09/01/18 Operative Procedure(s): primary section Findings: viable female, breech, 6#13oz, 1/7 APGARS 1135 b- viable male, vertex, 7#9oz 6/7 APGARS 1136 Pre Op Diagnosis: Gestational hypertension Post-Op Diagnosis: Same Anesthesia Technique: Spinal Primary Surgeon: Ara Méndez Epoxy Coatings Installer: Whitney Mcgee Fluid Replacement, Intraop: 2,000 Output, Urine Amount: 250 EBL in mLs: 1,000 Complications: None Condition: Good Free Text/Narrative:: The patient was taken to the operating room where spinal anesthesia was dosed to surgical levels without difficulty. The patient was prepped and draped in the usual sterile fashion in the dorsal supine position with a leftward tilt. A Pfannenstiel skin incision was made with the scalpel and carried through to the underlying layer of fascia. The fascia was incised in the midline and extended laterally using Tatum scissors. Rosemary clamps were used to elevate the superior aspect of the fascial incision, which was elevated, and the underlying rectus muscles were dissected off bluntly and using Tatum scissors. Attention was then turned to the inferior aspect of the fascial incision, which in similar fashion was grasped with Rosemary clamps, elevated, and the underlying rectus muscles were dissected off bluntly and using the tatum. The rectus muscles were dissected in the midline. The peritoneum was entered bluntly; this incision was extended superiorly and inferiorly with good visualization of the bladder. The bladder blade was inserted. The vesicouterine peritoneum was identified and entered sharply using Metzenbaum scissors. This incision was extended laterally and the bladder flap was created digitally. The bladder blade was reinserted. The lower uterine segment was incised in a transverse fashion using the scalpel and with digital traction. Clear fluid was noted. The first was subsequently delivered by breech maneuvers the head to the incision. Body and head followed without difficulty. The cord was clamped and cut. The infant was subsequently handed to the awaiting medical assistant dermatology whose presence had been requested.. Second infant delivered vertex. The placenta was delivered spontaneously intact with a three- vessel cord noted. The uterus was exteriorized and cleared of all clots and debris. The uterine incision was repaired in 2 layers using 0 monocryl. Hemostasis was visualized. Hemostasis was visualized bilaterally. The uterus was returned to the abdomen. The uterine incision was reexamined and it was noted to be hemostatic. The pelvis was copiously irrigated. The fascia was closed with 1 PDS suture, and the skin was closed with 3-0 monocryl. Sponge, lap, and instrument counts were correct x2. The patient was stable at the completion of the procedure and was subsequently transferred to the recovery room in stable condition.
--- NOTE | 2018-09-01 12:23 | PCM.POSTAN ---
POST ANESTHESIA ASSESSMENT - MENTAL STATUS Mental Status: Alert, Oriented - VITAL SIGNS Pulse Rate: 82 SaO2: 98 Resp Rate: 20 Blood Pressure: 152/105 Temperature: 36.1 C - RESPIRATORY Respiratory Status: Respiratory Rate WNL, Airway Patent, O2 Saturation Stable, Supplemental Oxygen - CARDIOVASCULAR CV Status: Pulse Rate WNL, Blood Pressure Stable - GASTROINTESTINAL GI Status: No Symptoms - PAIN Pain Score: 0 - POST OP HYDRATION Hydration Status: Adequate & Stable
[2018-09-01] MEDS ORDERED: Promethazine 12.5 MG in Sodium Chloride 0.9% 50 ML IV PRN (12:25)
[2018-09-01] MEDS ORDERED: Ondansetron 4 MG/2 ML SDV IVPUSH PRN (12:25)
[2018-09-01] MEDS ORDERED: fentaNYL 100 MCG/2 ML SDV IVPUSH PRN (12:25)
[2018-09-01] MEDS ORDERED: Misoprostol 200 MCG Tab PO ONE (12:31)
[2018-09-01] MEDS ORDERED: diphenhydrAMINE 50 MG/ML SDV ONE (12:55)
[2018-09-01] MEDS ORDERED: Tranexamic Acid 1,000 MG in Sodium Chloride 0.9% 100 ML IV SCH (13:00)
[2018-09-01] MEDS ORDERED: Hetastarch in NS 500 ML ONE (13:30)
[2018-09-01] MEDS ORDERED: Carboprost Tromethamine 250 MCG/1 ML Amp ONE (13:51)
[2018-09-01] MEDS ORDERED: Magnesium Sulfate/Water 4 GM in Premix Bag 1 BAG IV ONE (14:16)
[2018-09-01] MEDS ORDERED: diphenhydrAMINE 50 MG/ML SDV IVPUSH PRN (14:16)
[2018-09-01] MEDS ORDERED: Naloxone 0.4 MG/ML SDV IVPUSH PRN (14:16)
[2018-09-01] MEDS ORDERED: Dextrose 5%-Lactated Ringers 1,000 ML IV SCH (14:16)
[2018-09-01] MEDS ORDERED: Lanolin 100% Cream 7 GM Tube TOP PRN (14:16)
[2018-09-01] MEDS ORDERED: Ketorolac 30 MG/ML SDV IVPUSH SCH (14:16)
[2018-09-01] MEDS ORDERED: ePHEDrine 50 MG/ML SDV IVPUSH PRN (14:16)
--- NOTE | 2018-09-01 14:17 | PCM.SN ---
- Free Text/Narrative Note: [address] Méndez around 1300 that while in PACU patient had about 1.5L of clot/blood. She had given the patient Cytotec and was planning on administering tranexamic acid. Plan for CBC on floor. Had not yet started magnesium. Called by PACU at 1345 that patient still with continued bleeding concerns. Anesthesia had already given patient hespan and started unit of PRBC. Asked to give patient hemabate and then presented immediately to assess patient. Vaginal exam done removing palm sized amount of clot. After this bleeding seemed reasonable. Reassessment of fundus after 20 minutes noted to be appropriate. Scant amount of bleeding. 2nd unit of PRBC hung. Reviewed with anesthesia and nursing and the other fluid patient received was 1L of crystalloid in PACU (2 units given in OR during surgery). Patient still with severe range BP's. Will move to floor and start antihypertensives and magnesium. Whitney Mcgee MD
[2018-09-01] MEDS ORDERED: Calcium Gluconate 10% 1 GM/10 ML SDV IV PRN (14:23)
[2018-09-01] MEDS ORDERED: Magnesium Sulfate/Water 40 GM/1,000 ML BAG IV SCH (14:30)
[2018-09-01] MEDS ORDERED: Labetalol 100 MG Tab PO ONE ×3 (15:16→23:30)
[2018-09-01] MEDS: Magnesium Sulfate/Water 2 GM in Premix Bag 1 BAG IV SCH ×2 (15:30→15:47)
[2018-09-01] MEDS: Lactated Ringers 1,000 ML IV SCH (15:43)
[2018-09-01] MEDS ORDERED: Labetalol 100 MG/20 ML MDV IVPUSH STA (17:14)
[2018-09-01] MEDS: Acetaminophen/oxyCODONE 325-5 MG Tab PO PRN ×2 (17:30→22:34)
--- NOTE | 2018-09-01 22:34 | PCM.SN ---
- Free Text/Narrative Note: 2230 Patient has been doing well throughout PM. Received an oral dose of 200 mg of labetalol when reached the floor and had her magnesium started. Was also given an IV dose of 20 mg of labetalol. Currently BP's are 130's/80's. No signs/ symptoms of preeclampsia. Will give another 200 mg dose at 2330. UOP appropriate. Bleeding scant. Will allow patient clear diet. CBC in AM Whitney Mcgee MD
[2018-09-02] MEDS: Lactated Ringers 1,000 ML IV SCH (03:07)
[2018-09-02] MEDS: Acetaminophen/oxyCODONE 325-5 MG Tab PO PRN ×4 (06:11→20:11)
[2018-09-02] MEDS ORDERED: Labetalol 100 MG Tab PO ONE (07:30)
[2018-09-02] MEDS ORDERED: Ibuprofen 600 MG Tab PO PRN (08:15)
--- NOTE | 2018-09-02 09:18 | PCM.PNPP ---
- General Info Date of Service: 09/02/18 Functional Status: Reports: Pain Controlled, Tolerating Diet (clear liquids ) - Review of Systems General: Reports: No Symptoms HEENT: Denies: Headaches, Visual Changes Pulmonary: Reports: No Symptoms. Denies: Shortness of Breath Cardiovascular: Reports: No Symptoms Gastrointestinal: Reports: Abdominal Pain (managed with medications) Musculoskeletal: Reports: No Symptoms Neurological: Denies: Headache - Patient Data Vital Signs - Most Recent: Last Vital Signs Temp 37.0 C 09/02/18 08:00 Pulse 90 09/02/18 08:00 Resp 18 09/02/18 08:00 BP 142/81 H 09/02/18 08:00 Pulse Ox 98 09/02/18 08:00 Weight - Most Recent: 138.119 kg I&O - Last 24 Hours: Intake & Output 09/01/18 09/02/18 09/02/18 22:59 06:59 14:59 Output Total 216 5611 1917 Balance -923 -8153 -[phone] Lab Results - Last 24 Hours: Laboratory Results - last 24 hr 09/01/18 09/01/18 09/01/18 Range/Units 10:23 10:23 10:23 WBC 7.81 (3.98-10.04) K/mm3 RBC 4.29 (3.98-5.22) M/mm3 Hgb 10.5 L (11.2-15.7) gm/L Hct 33.5 L (34.1-44.9) % MCV 78.1 L (79.4-94.8) fl MCH 24.5 L (25.6-32.2) pg MCHC 31.3 L (32.2-35.5) g/dl RDW Std Deviation 45.1 (36.4-46.3) fL Plt Count 146 L (182-369) K/mm3 MPV 13.6 H (9.4-12.3) fl Neut % (Auto) 69.9 (34.0-71.1) % Lymph % (Auto) 23.9 (19.3-51.7) % [place] % (Auto) 5.0 (4.7-12.5) % Eos % (Auto) 0.6 L (0.7-5.8) Baso % (Auto) 0.3 (0.1-1.2) % Neut # (Auto) 5.46 (1.56-6.13) K/mm3 Lymph # (Auto) 1.87 (1.18-3.74) K/mm3 [place] # (Auto) 0.39 H (0.24-0.36) K/mm3 Eos # (Auto) 0.05 (0.04-0.36) K/mm3 Baso # (Auto) 0.02 (0.01-0.08) K/mm3 Manual Slide Review Abnormal smear Sodium (136-145) mEq/L Potassium (3.5-5.1) mEq/L Chloride (98-107) mEq/L Carbon Dioxide (21-32) mEq/L Anion Gap (5-15) BUN 11 (7-18) mg/dL Creatinine 0.8 (0.55-1.02) mg/dL Est Cr Clr Drug Dosing 105.51 mL/min Estimated GFR (MDRD) > 60 (>60) mL/min BUN/Creatinine Ratio (14-18) Glucose (74-106) mg/dL POC Glucose (70-105) mg/dL Uric Acid 5.9 (2.6-6.0) mg/dL Calcium (8.5-10.1) mg/dL AST 16 (15-37) U/L ALT 17 (14-59) U/L Lactate Dehydrogenase 209 (81-234) U/L Blood Type A POSITIVE Gel Antibody Screen Negative Crossmatch See Detail 09/01/18 09/01/18 09/02/18 Range/Units 11:07 13:35 06:03 WBC 16.14 H 9.67 (3.98-10.04) K/mm3 RBC 3.56 L 2.99 L (3.98-5.22) M/mm3 Hgb 8.8 L D 7.6 L (11.2-15.7) gm/L Hct 28.3 L 24.3 L (34.1-44.9) % MCV 79.5 81.3 (79.4-94.8) fl MCH 24.7 L 25.4 L (25.6-32.2) pg MCHC 31.1 L 31.3 L (32.2-35.5) g/dl RDW Std Deviation 45.5 46.1 (36.4-46.3) fL Plt Count 195 144 L (182-369) K/mm3 MPV 13.0 H 12.8 H (9.4-12.3) fl Neut % (Auto) 75.5 H (34.0-71.1) % Lymph % (Auto) 18.9 L (19.3-51.7) % [place] % (Auto) 4.8 (4.7-12.5) % Eos % (Auto) 0.2 L (0.7-5.8) Baso % (Auto) 0.2 (0.1-1.2) % Neut # (Auto) 12.19 H (1.56-6.13) K/mm3 Lymph # (Auto) 3.05 (1.18-3.74) K/mm3 [place] # (Auto) 0.77 H (0.24-0.36) K/mm3 Eos # (Auto) 0.04 (0.04-0.36) K/mm3 Baso # (Auto) 0.03 (0.01-0.08) K/mm3 Manual Slide Review Sodium (136-145) mEq/L Potassium (3.5-5.1) mEq/L Chloride (98-107) mEq/L Carbon Dioxide (21-32) mEq/L Anion Gap (5-15) BUN (7-18) mg/dL Creatinine (0.55-1.02) mg/dL Est Cr Clr Drug Dosing mL/min Estimated GFR (MDRD) (>60) mL/min BUN/Creatinine Ratio (14-18) Glucose (74-106) mg/dL POC Glucose 102 (70-105) mg/dL Uric Acid (2.6-6.0) mg/dL Calcium (8.5-10.1) mg/dL AST (15-37) U/L ALT (14-59) U/L Lactate Dehydrogenase (81-234) U/L Blood Type Gel Antibody Screen Crossmatch 09/02/18 Range/Units 06:03 WBC (3.98-10.04) K/mm3 RBC (3.98-5.22) M/mm3 Hgb (11.2-15.7) gm/L Hct (34.1-44.9) % MCV (79.4-94.8) fl MCH (25.6-32.2) pg MCHC (32.2-35.5) g/dl RDW Std Deviation (36.4-46.3) fL Plt Count (182-369) K/mm3 MPV (9.4-12.3) fl Neut % (Auto) (34.0-71.1) % Lymph % (Auto) (19.3-51.7) % [place] % (Auto) (4.7-12.5) % Eos % (Auto) (0.7-5.8) Baso % (Auto) (0.1-1.2) % Neut # (Auto) (1.56-6.13) K/mm3 Lymph # (Auto) (1.18-3.74) K/mm3 [place] # (Auto) (0.24-0.36) K/mm3 Eos # (Auto) (0.04-0.36) K/mm3 Baso # (Auto) (0.01-0.08) K/mm3 Manual Slide Review Sodium 135 L (136-145) mEq/L Potassium 4.0 (3.5-5.1) mEq/L Chloride 104 (98-107) mEq/L Carbon Dioxide 23 (21-32) mEq/L Anion Gap 12.0 (5-15) BUN 9 (7-18) mg/dL Creatinine 0.7 (0.55-1.02) mg/dL Est Cr Clr Drug Dosing 120.58 mL/min Estimated GFR (MDRD) > 60 (>60) mL/min BUN/Creatinine Ratio 12.9 L (14-18) Glucose 97 (74-106) mg/dL POC Glucose (70-105) mg/dL Uric Acid (2.6-6.0) mg/dL Calcium 7.5 L (8.5-10.1) mg/dL AST (15-37) U/L ALT (14-59) U/L Lactate Dehydrogenase (81-234) U/L Blood Type Gel Antibody Screen Crossmatch Med Orders - Current: Current Medications Diphenhydramine HCl (Benadryl) 25 mg IVPUSH Q6H PRN PRN Reason: Itching or Nausea Emollient Ointment (Lansinoh Hpa) 0 gm TOP ASDIRECTED PRN PRN Reason: Sore Nipples Lactated Ringer's (Ringers, Lactated) 1,000 mls @ 75 mls/hr IV ASDIRECTED [facility] Last Admin: 09/02/18 03:07 Dose: 75 mls/hr Magnesium Sulfate (Magnesium Sulfate 40 Gm In Water 1000 Ml) 40 gm in 1,000 mls @ 50 mls/hr IV ASDIRECTED [facility] Last Admin: 09/01/18 20:23 Dose: 50 mls/hr Ibuprofen (Motrin) 600 mg PO Q6H PRN PRN Reason: Pain Naloxone HCl (Narcan) 0.1 mg IVPUSH SEECOMMENT PRN PRN Reason: Respiratory Depression Oxycodone/Acetaminophen (Percocet 325-5 Mg) 2 tab PO Q4H PRN PRN Reason: Pain (moderate 4-6) Last Admin: 09/02/18 06:11 Dose: 2 tab Discontinued Medications Aminophylline (Aminophylline) Confirm Administered Dose 250 mg .ROUTE .STK-MED ONE Stop: 09/01/18 11:48 Bupivacaine HCl (Marcaine 0.5%) Confirm Administered Dose 30 ml .ROUTE .STK-MED ONE Stop: 09/01/18 10:36 Last Admin: 09/01/18 11:33 Dose: 20 ml Calcium Gluconate (Calcium Gluconate) 1 gm IV ASDIRECTED PRN PRN Reason: respiratory distress Carboprost Tromethamine (Hemabate Ds) Confirm Administered Dose 250 mcg .ROUTE .STK-MED ONE Stop: 09/01/18 13:52 Cefazolin Sodium (Ancef) Confirm Administered Dose 2 gm .ROUTE .STK-MED ONE Stop: 09/01/18 10:32 Cefazolin Sodium (Ancef) Confirm Administered Dose 1 gm .ROUTE .STK-MED ONE Stop: 09/01/18 10:32 Citric Acid/Sodium Citrate (Bicitra Solution) 30 ml PO ONETIME ONE Stop: 09/01/18 10:06 Last Admin: 09/01/18 10:40 Dose: 30 ml Diphenhydramine HCl (Benadryl) Confirm Administered Dose 50 mg .ROUTE .STK-MED ONE Stop: 09/01/18 12:56 Ephedrine Sulfate (Ephedrine Sulfate) 5 mg IVPUSH SEECOMMENT PRN PRN Reason: Other Fentanyl (Sublimaze) Confirm Administered Dose 100 mcg .ROUTE .STK-MED ONE Stop: 09/01/18 11:51 Fentanyl (Sublimaze) 50 mcg IVPUSH Q5M PRN PRN Reason: Pain Cefazolin Sodium/Dextrose 1 gm (/ Premix) 50 mls @ 100 mls/hr IV ONETIME ONE Stop: 09/01/18 10:59 Last Admin: 09/01/18 18:33 Dose: Not Given Cefazolin Sodium/Dextrose 2 gm (/ Premix) 50 mls @ 100 mls/hr IV ONETIME ONE Stop: 09/01/18 10:59 Last Admin: 09/01/18 18:33 Dose: Not Given Lactated Ringer's (Ringers, Lactated) 1,000 mls @ 125 mls/hr IV ASDIRECTED [facility] Last Admin: 09/01/18 10:54 Dose: 999 mls/hr Oxytocin/Lactated Ringer's (Pitocin In Lr 10 Units/1,000 Ml) 10 unit in 1,000 mls @ 100 mls/hr IV ASDIRECTED [facility]; Protocol Lactated Ringer's (Ringers, Lactated) Confirm Administered Dose 2,000 mls @ as directed .ROUTE .[facility]-MED ONE Stop: 09/01/18 10:32 Promethazine HCl 12.5 mg/ (Sodium Chloride) 50.5 mls @ 100 mls/hr IV ONETIME PRN PRN Reason: Nausea Hetastarch/Sodium Chloride (Hetastarch 6% In Normal Saline) Confirm Administered Dose 500 mls @ as directed .ROUTE .[facility]-MED ONE Stop: 09/01/18 13:31 Dextrose/Lactated Ringer's (Dextrose 5%-Lactated Ringers) 1,000 mls @ 125 mls/ hr IV ASDIRECTED [facility] Stop: 09/01/18 22:15 Magnesium Sulfate 4 gm/ Premix 50 mls @ 12.5 mls/hr IV ONETIME ONE Stop: 09/01/18 18:15 Last Admin: 09/01/18 17:25 Dose: 12.5 mls/hr Magnesium Sulfate 2 gm/ Premix 50 mls @ 25 mls/hr IV Q1H [facility] Stop: 09/01/18 16:15 Last Admin: 09/01/18 15:47 Dose: Not Given Ibuprofen (Motrin) 600 mg PO Q6H PRN PRN Reason: mild pain or fever Ketorolac Tromethamine (Toradol) Confirm Administered Dose 30 mg .ROUTE .STK- MED ONE Stop: 09/01/18 10:32 Ketorolac Tromethamine (Toradol) 30 mg IVPUSH Q6H [facility] Stop: 09/02/18 02:17 Last Admin: 09/01/18 18:32 Dose: Not Given Labetalol HCl (Normodyne) 200 mg PO ONETIME ONE Stop: 09/01/18 15:17 Last Admin: 09/01/18 15:27 Dose: 200 mg Labetalol HCl (Normodyne) 20 mg IVPUSH ONETIME STA; Protocol Stop: 09/01/18 17:15 Last Admin: 09/01/18 17:29 Dose: 20 mg Labetalol HCl (Normodyne) 400 mg PO ONETIME ONE Stop: 09/01/18 23:31 Labetalol HCl (Normodyne) 200 mg PO ONETIME ONE Stop: 09/01/18 23:31 Last Admin: 09/01/18 23:42 Dose: 100 mg Labetalol HCl (Normodyne) 200 mg PO ONETIME ONE Stop: 09/02/18 07:31 Last Admin: 09/02/18 07:39 Dose: 200 mg Metoclopramide HCl (Reglan) 10 mg IVPUSH ONETIME ONE Stop: 09/01/18 10:06 Last Admin: 09/01/18 10:41 Dose: 10 mg Misoprostol (Cytotec) 600 mcg PO ONETIME ONE Stop: 09/01/18 12:32 Last Admin: 09/01/18 18:33 Dose: Not Given Morphine Sulfate (Duramorph Pf) Confirm Administered Dose 1 mg .ROUTE .STK-MED ONE Stop: 09/01/18 10:32 Nalbuphine HCl (Nubain) 10 mg IVPUSH Q2H PRN PRN Reason: pain Ondansetron HCl (Zofran) Confirm Administered Dose 4 mg .ROUTE .STK-MED ONE Stop: 09/01/18 10:32 Ondansetron HCl (Zofran) 4 mg IVPUSH ONETIME PRN PRN Reason: Nausea/Vomiting Oxytocin (Pitocin) Confirm Administered Dose 10 unit .ROUTE .STK-MED ONE Stop: 09/01/18 10:32 Phenylephrine HCl (Phenylephrine In Ns 100 Mcg/Ml) Confirm Administered Dose 1 mg .ROUTE .[facility] ONE Stop: 09/01/18 12:02 Sodium Chloride (Saline Flush) 10 ml FLUSH ASDIRECTED PRN PRN Reason: Keep Vein Open Tranexamic Acid (Cyklokapron) Confirm Administered Dose 1,000 mg .ROUTE .[employer] ONE Stop: 09/01/18 13:01 - Interaction Disposition, : in Room with Family (Twins both in room at times and also back to nursery) Interaction: Holding Infant Support Person: Significant Other - Recovery Exam Fundal Tone: Firm Fundal Level: At Umbilicus Fundal Placement: Midline Lochia Amount: Scant Lochia Color: Rubra/Red Perineum Description: Intact, Minimal Bruising/Swelling Bladder Status: Indwelling Catheter in Place Urinary Elimination: Indwelling Catheter - Exam General: Alert, Oriented, Cooperative Lungs: Clear to Auscultation, Normal Respiratory Effort Cardiovascular: Regular Rate, Regular Rhythm GI/Abdominal Exam: Soft, Non-Tender Extremities: Normal Inspection Skin: Warm, Dry, Intact Wound/Incisions: Healing Well, Dressing Dry and Intact Neurological: Reflexes Equal Bilateral - Problem List & Annotations (1) 36 weeks gestation of SNOMED Code(s): 53402786 Code(s): Z3A.36 - 36 WEEKS GESTATION OF Status: Acute Current Visit: Yes (2) Dichorionic diamniotic twin gestation SNOMED Code(s): 302386213 Code(s): O30.049 - TWIN , DICHORIONIC/DIAMNIOTIC, UNSP TRIMESTER Status: Acute Current Visit: Yes (3) Severe preeclampsia SNOMED Code(s): 55816098 Code(s): O14.10 - SEVERE PRE-ECLAMPSIA, UNSPECIFIED TRIMESTER Status: Acute Current Visit: Yes (4) Gestational diabetes SNOMED Code(s): 60013857 Code(s): O24.419 - GESTATIONAL DIABETES MELLITUS IN , UNSP CONTROL Status: Acute Current Visit: Yes Qualifiers: Gestational diabetes mellitus control: unspecified Trimester: third trimester Qualified Code(s): O24.419 - Gestational diabetes mellitus in , unspecified control (5) hemorrhage SNOMED Code(s): 59966833 Code(s): O72.1 - OTHER IMMEDIATE HEMORRHAGE Status: Acute Current Visit: Yes Qualifiers: hemorrhage type: other immediate Qualified Code(s): O72.1 - Other immediate hemorrhage - Problem List Review Problem List Initiated/Reviewed/Updated: Yes - My Orders Last 24 Hours: My Active Orders 09/01/18 14:23 Notify Provider Status Change [RC] ASDIRECTED Notify Provider Vital Signs [RC] ASDIRECTED Oxygen Therapy [RC] PRN 09/01/18 14:24 Medication Administration Instruction [OM.PC] Per Unit Routine 09/01/18 14:26 Intake and Output [RC] Q8HR 09/01/18 14:30 Lactated Ringers [Ringers, Lactated] 1,000 ml IV ASDIRECTED Magnesium Sulfate/Water [Magnesium Sulfate 40 GM in Water 1000 ML] 40 gm in 1, 000 ml IV ASDIRECTED Deep Tendon Reflexes [WOMSER] ASDIRECTED 09/02/18 08:14 Ibuprofen [Motrin] 600 mg PO Q6H PRN 09/02/18 09:08 Activity as Tolerated [RC] .Routine 09/02/18 Breakfast Regular Diet [DIET] - Assessment Assessment:: 33 y/o G2 now P1103 POD#1 from [facility] at 36 4/7 wks for di/di twin gestation ( non vertex presenting twin) and severe preeclampsia - Plan Plan:: Hemorrhage - Total OR and post op EBL of about 3.4L * S/p Cytotec, hemabate, and Tranexamic acid * S/p 2 units of PRBC and hespan in PACU * Hb on admission was 10.8, was 8.8 in PACU during acute bleeding, now today at 7.6. Will have patient get up more today. If does not tolerate well can order additional units of blood, but will hold for now Severe Preeclampsia * On Magnesium. Will end at about noon today * UOP has been excellent, having at time >400cc/hr * Labetalol started when arrived to floor yesterday. Currently using 200 mg q8 hours. BP's 130-140/90's GODMA * Will need 2hr GTT at check Post Op * Routine cares * Encourage breast feeding
[2018-09-02] MEDS: Ibuprofen 600 MG Tab PO PRN ×2 (13:48→20:20)
[2018-09-02] MEDS: Labetalol 100 MG Tab PO SCH ×2 (15:39→23:46)
--- NOTE | 2018-09-02 18:58 | PCM48HPAN ---
Post Anesthesia Note - EVALUATION WITHIN 48HRS OF ANESTHETIC Vital Signs in Normal Range: Yes Patient Participated in Evaluation: Yes Respiratory Function Stable: Yes Airway Patent: Yes Cardiovascular Function Stable: Yes Hydration Status Stable: Yes Pain Control Satisfactory: Yes Nausea and Vomiting Control Satisfactory: Yes Mental Status Recovered: Yes (sitting up- visiting with room full of company) Pulse Rate: 89 Resp Rate: 18 Temperature: 99.4 F Blood Pressure: 136/81
[2018-09-03] MEDS: Labetalol 100 MG Tab PO SCH ×3 (07:35→23:44)
[2018-09-03] MEDS: Acetaminophen/oxyCODONE 325-5 MG Tab PO PRN ×4 (07:41→23:44)
--- NOTE | 2018-09-03 08:14 | PCM.PNPP ---
- General Info Date of Service: 09/03/18 Functional Status: Reports: Pain Controlled, Tolerating Diet, Ambulating, Urinating - Review of Systems General: Reports: No Symptoms HEENT: Denies: Headaches, Visual Changes Pulmonary: Reports: No Symptoms Cardiovascular: Reports: No Symptoms Gastrointestinal: Reports: Abdominal Pain (managed with medications ) Genitourinary: Reports: No Symptoms Musculoskeletal: Reports: No Symptoms Neurological: Reports: No Symptoms - Patient Data Vital Signs - Most Recent: Last Vital Signs Temp 36.4 C 09/03/18 04:00 Pulse 80 09/03/18 07:35 Resp 16 09/03/18 04:00 BP 151/86 H 09/03/18 07:35 Pulse Ox 99 09/03/18 04:00 Weight - Most Recent: 138.119 kg I&O - Last 24 Hours: Intake & Output 09/02/18 09/03/18 09/03/18 22:59 06:59 14:59 Output Total 800 Balance -800 Med Orders - Current: Current Medications Diphenhydramine HCl (Benadryl) 25 mg IVPUSH Q6H PRN PRN Reason: Itching or Nausea Emollient Ointment (Lansinoh Hpa) 0 gm TOP ASDIRECTED PRN PRN Reason: Sore Nipples Ibuprofen (Motrin) 600 mg PO Q6H PRN PRN Reason: Pain Last Admin: 09/02/18 20:20 Dose: 600 mg Labetalol HCl (Normodyne) 200 mg PO Q8H [facility] Last Admin: 09/03/18 07:35 Dose: 200 mg Naloxone HCl (Narcan) 0.1 mg IVPUSH SEECOMMENT PRN PRN Reason: Respiratory Depression Oxycodone/Acetaminophen (Percocet 325-5 Mg) 2 tab PO Q4H PRN PRN Reason: Pain (moderate 4-6) Last Admin: 09/03/18 07:41 Dose: 2 tab Discontinued Medications Aminophylline (Aminophylline) Confirm Administered Dose 250 mg .ROUTE .STK-MED ONE Stop: 09/01/18 11:48 Bupivacaine HCl (Marcaine 0.5%) Confirm Administered Dose 30 ml .ROUTE .STK-MED ONE Stop: 09/01/18 10:36 Last Admin: 09/01/18 11:33 Dose: 20 ml Calcium Gluconate (Calcium Gluconate) 1 gm IV ASDIRECTED PRN PRN Reason: respiratory distress Carboprost Tromethamine (Hemabate Ds) Confirm Administered Dose 250 mcg .ROUTE .STK-MED ONE Stop: 09/01/18 13:52 Cefazolin Sodium (Ancef) Confirm Administered Dose 2 gm .ROUTE .STK-MED ONE Stop: 09/01/18 10:32 Cefazolin Sodium (Ancef) Confirm Administered Dose 1 gm .ROUTE .STK-MED ONE Stop: 09/01/18 10:32 Citric Acid/Sodium Citrate (Bicitra Solution) 30 ml PO ONETIME ONE Stop: 09/01/18 10:06 Last Admin: 09/01/18 10:40 Dose: 30 ml Diphenhydramine HCl (Benadryl) Confirm Administered Dose 50 mg .ROUTE .STK-MED ONE Stop: 09/01/18 12:56 Ephedrine Sulfate (Ephedrine Sulfate) 5 mg IVPUSH SEECOMMENT PRN PRN Reason: Other Fentanyl (Sublimaze) Confirm Administered Dose 100 mcg .ROUTE .STK-MED ONE Stop: 09/01/18 11:51 Fentanyl (Sublimaze) 50 mcg IVPUSH Q5M PRN PRN Reason: Pain Cefazolin Sodium/Dextrose 1 gm (/ Premix) 50 mls @ 100 mls/hr IV ONETIME ONE Stop: 09/01/18 10:59 Last Admin: 09/01/18 18:33 Dose: Not Given Cefazolin Sodium/Dextrose 2 gm (/ Premix) 50 mls @ 100 mls/hr IV ONETIME ONE Stop: 09/01/18 10:59 Last Admin: 09/01/18 18:33 Dose: Not Given Lactated Ringer's (Ringers, Lactated) 1,000 mls @ 125 mls/hr IV ASDIRECTED [facility] Last Admin: 09/01/18 10:54 Dose: 999 mls/hr Oxytocin/Lactated Ringer's (Pitocin In Lr 10 Units/1,000 Ml) 10 unit in 1,000 mls @ 100 mls/hr IV ASDIRECTED [facility]; Protocol Lactated Ringer's (Ringers, Lactated) Confirm Administered Dose 2,000 mls @ as directed .ROUTE .STK-MED ONE Stop: 09/01/18 10:32 Promethazine HCl 12.5 mg/ (Sodium Chloride) 50.5 mls @ 100 mls/hr IV ONETIME PRN PRN Reason: Nausea Hetastarch/Sodium Chloride (Hetastarch 6% In Normal Saline) Confirm Administered Dose 500 mls @ as directed .ROUTE .[facility] ONE Stop: 09/01/18 13:31 Dextrose/Lactated Ringer's (Dextrose 5%-Lactated Ringers) 1,000 mls @ 125 mls/ hr IV ASDIRECTED [facility] Stop: 09/01/18 22:15 Magnesium Sulfate 4 gm/ Premix 50 mls @ 12.5 mls/hr IV ONETIME ONE Stop: 09/01/18 18:15 Last Admin: 09/01/18 17:25 Dose: 12.5 mls/hr Magnesium Sulfate 2 gm/ Premix 50 mls @ 25 mls/hr IV Q1H [facility] Stop: 09/01/18 16:15 Last Admin: 09/01/18 15:47 Dose: Not Given Lactated Ringer's (Ringers, Lactated) 1,000 mls @ [facility] Admin: 09/02/18 03:07 Dose: 75 mls/hr Magnesium Sulfate (Magnesium Sulfate 40 Gm In Water 1000 Ml) 40 gm in 1,000 mls @ 50 mls/hr IV ASDIRECTED [facility] Last Admin: 09/01/18 20:23 Dose: 50 mls/hr Ibuprofen (Motrin) 600 mg PO Q6H PRN PRN Reason: mild pain or fever Ketorolac Tromethamine (Toradol) Confirm Administered Dose [address] .[facility] ONE Stop: 09/01/18 10:32 Ketorolac Tromethamine (Toradol) 30 mg IVPUSH Q6H [facility] Stop: 09/02/18 02:17 Last Admin: 09/01/18 18:32 Dose: Not Given Labetalol HCl (Normodyne) 200 mg PO ONETIME ONE Stop: 09/01/18 15:17 Last Admin: 09/01/18 15:27 Dose: 200 mg Labetalol HCl (Normodyne) 20 mg IVPUSH ONETIME STA; Protocol Stop: 09/01/18 17:15 Last Admin: 09/01/18 17:29 Dose: 20 mg Labetalol HCl (Normodyne) 400 mg PO ONETIME ONE Stop: 09/01/18 23:31 Labetalol HCl (Normodyne) 200 mg PO ONETIME ONE Stop: 09/01/18 23:31 Last Admin: 09/01/18 23:42 Dose: 100 mg Labetalol HCl (Normodyne) 200 mg PO ONETIME ONE Stop: 09/02/18 07:31 Last Admin: 09/02/18 07:39 Dose: 200 mg Metoclopramide HCl (Reglan) 10 mg IVPUSH ONETIME ONE Stop: 09/01/18 10:06 Last Admin: 09/01/18 10:41 Dose: 10 mg Misoprostol (Cytotec) 600 mcg PO ONETIME ONE Stop: 09/01/18 12:32 Last Admin: 09/01/18 18:33 Dose: Not Given Morphine Sulfate (Duramorph Pf) Confirm Administered Dose 1 mg .ROUTE .STK-MED ONE Stop: 09/01/18 10:32 Nalbuphine HCl (Nubain) 10 mg IVPUSH Q2H PRN PRN Reason: pain Ondansetron HCl (Zofran) Confirm Administered Dose 4 mg .ROUTE .STK-MED ONE Stop: 09/01/18 10:32 Ondansetron HCl (Zofran) 4 mg IVPUSH ONETIME PRN PRN Reason: Nausea/Vomiting Oxytocin (Pitocin) Confirm Administered Dose 10 unit .ROUTE .STK-MED ONE Stop: 09/01/18 10:32 Phenylephrine HCl (Phenylephrine In Ns 100 Mcg/Ml) Confirm Administered Dose 1 mg .ROUTE .STK-MED ONE Stop: 09/01/18 12:02 Sodium Chloride (Saline Flush) 10 ml FLUSH ASDIRECTED PRN PRN Reason: Keep Vein Open Tranexamic Acid (Cyklokapron) Confirm Administered Dose 1,000 mg .ROUTE .STK- MED ONE Stop: 09/01/18 13:01 - Interaction Infant Disposition, : in Room with Family Infant Interaction: Holding Feeding: Bottle Fed Support Person: Significant Other - Recovery Exam Fundal Tone: Firm Fundal Level: At Umbilicus Fundal Placement: Midline Lochia Amount: Small Lochia Color: Rubra/Red Perineum Description: Intact, Minimal Bruising/Swelling Episiotomy/Laceration: None Bladder Status: Voiding Urinary Elimination: Voided - Exam General: Alert, Oriented, Cooperative Lungs: Clear to Auscultation, Normal Respiratory Effort Cardiovascular: Regular Rate, Regular Rhythm GI/Abdominal Exam: Soft, Tender (appropriate post op) Extremities: Pedal Edema Skin: Warm, Dry, Intact Wound/Incisions: Healing Well, No Drainage - Problem List & Annotations (1) 36 weeks gestation of SNOMED Code(s): 96048646 Code(s): Z3A.36 - 36 WEEKS GESTATION OF Status: Acute Current Visit: Yes (2) Dichorionic diamniotic twin gestation SNOMED Code(s): 280854133 Code(s): O30.049 - TWIN , DICHORIONIC/DIAMNIOTIC, UNSP TRIMESTER Status: Acute Current Visit: Yes Qualifiers: Trimester: third trimester Qualified Code(s): O30.043 - Twin , dichorionic/diamniotic, third trimester (3) Severe preeclampsia SNOMED Code(s): 19079148 Code(s): O14.10 - SEVERE PRE-ECLAMPSIA, UNSPECIFIED TRIMESTER Status: Acute Current Visit: Yes (4) Gestational diabetes SNOMED Code(s): 64078563 Code(s): O24.419 - GESTATIONAL DIABETES MELLITUS IN , UNSP CONTROL Status: Acute Current Visit: Yes Qualifiers: Gestational diabetes mellitus control: unspecified Trimester: third trimester Qualified Code(s): O24.419 - Gestational diabetes mellitus in , unspecified control (5) hemorrhage SNOMED Code(s): 44817220 Code(s): O72.1 - OTHER IMMEDIATE HEMORRHAGE Status: Acute Current Visit: Yes Qualifiers: hemorrhage type: other immediate Qualified Code(s): O72.1 - Other immediate hemorrhage - Problem List Review Problem List Initiated/Reviewed/Updated: Yes - My Orders Last 24 Hours: My Active Orders 09/02/18 08:14 Ibuprofen [Motrin] 600 mg PO Q6H PRN 09/02/18 09:08 Activity as Tolerated [RC] .Routine 09/02/18 15:30 Labetalol [Normodyne] 200 mg PO Q8H - Assessment Assessment:: 33 y/o G2 now P1103 POD#2 [facility] at [facility] 4/7 [facility]ks for di/di twin gestation ( non vertex presenting twin) and severe preeclampsia - Plan Plan:: Hemorrhage - Total OR and post op EBL of about 3.4L * S/p Cytotec, hemabate, and Tranexamic acid * S/p 2 units of PRBC and hespan in PACU * Hb on admission was 10.8, was 8.8 in PACU during acute bleeding, and 7.6 on POD#1. Tolerating well. Will not assess further unless change in status Severe Preeclampsia * S/p 24 hours of magnesium * Labetalol 200 mg q8 hours. BP's 130-150/80's GODMA * Will need 2hr GTT at check Post Op * Routine cares
[2018-09-03] MEDS: Ibuprofen 600 MG Tab PO PRN ×3 (09:52→20:43)
[2018-09-03] MEDS ORDERED: Docusate Sodium 100 MG Cap PO PRN (11:36)
[2018-09-04] MEDS: Ibuprofen 600 MG Tab PO PRN (05:04)
[2018-09-04] MEDS: Acetaminophen/oxyCODONE 325-5 MG Tab PO PRN (06:37)
[2018-09-04] MEDS: Labetalol 100 MG Tab PO SCH (07:38)
== END 2018-09-04 10:18 | disposition home or self-care (01) | DRG 788 ==
LOC: OBSVTOIN 09:57 → INTOOBSV 09:57 → JD.OB 09:57 → OBSVTOIN 11:35 → EDSTATUS 09-12 08:00
PROVIDERS: ADMIT Obstetrics & Gynecology; ATTEND Obstetrics & Gynecology
PROC: 10D00Z1 Extraction of Products of Conception, Low, Open Approach (ICD-10-PCS; principal; 2018-09-01)
PROC: 30233N1 Transfusion of Nonautologous Red Blood Cells into Peripheral Vein, Percutaneous Approach (ICD-10-PCS; 2018-09-01)
DX: O14.14 Severe pre-eclampsia complicating childbirth (principal); O99.344 Other mental disorders complicating childbirth; O72.1 Other immediate postpartum hemorrhage; O24.424 Gestational diabetes mellitus in childbirth, insulin controlled; F41.9 Anxiety disorder, unspecified; O99.214 Obesity complicating childbirth; E66.9 Obesity, unspecified; Z3A.36 36 weeks gestation of pregnancy; Z37.2 Twins, both liveborn; O30.043 Twin pregnancy, dichorionic/diamniotic, third trimester; O99.62 Diseases of the digestive system complicating childbirth; K21.9 Gastro-esophageal reflux disease without esophagitis; O32.1XX1 Maternal care for breech presentation, fetus 1; Z87.891 Personal history of nicotine dependence
CPT/HCPCS: 36415; 36430; 59025; 80048; 82565; 82962; 83615; 84450; 84460; 84520; 84550; 85025; 85027; 86850; 86900; 86901; 86922; 94762; A9270-GY; J0280; J0690; J1200; J1885; J2274; J2370; J2405; J2590; J2765; J3010; J3475; J3490; J7120; P9016

== ENCOUNTER 2018-10-27 08:39 | Day surgery (SDC) | payer MEDICAID, OTHER ==
[~2018-10-27 08:39] MED LIST: Lactated Ringers 1,000 ML IV SCH; Lidocaine 1%/Sod Bicarbonate in NS 8.4% 1 ML Syringe IDERM PRN; Sodium Chloride 0.9% 10 ML Syringe FLUSH PRN
[2018-10-27] MEDS ORDERED: Propofol 200 MG/20 ML SDV ONE (10:42)
[2018-10-27] MEDS ORDERED: fentaNYL 100 MCG/2 ML SDV ONE ×3 (10:42→14:12)
[2018-10-27] MEDS ORDERED: Midazolam 1 MG/ML 2 ML SDV ONE (10:43)
[2018-10-27] MEDS ORDERED: Rocuronium 50 MG/5 ML Vial ONE (10:43)
[2018-10-27] MEDS ORDERED: Ondansetron 4 MG/2 ML SDV ONE ×2 (10:43→14:47)
[2018-10-27] MEDS ORDERED: Ketorolac 30 MG/ML SDV ONE (10:43)
[2018-10-27] MEDS ORDERED: Dexamethasone 4 MG/ML SDV ONE (10:43)
[2018-10-27] MEDS ORDERED: ceFAZolin 1 GM Vial ONE ×2 (10:49)
[2018-10-27] MEDS ORDERED: Bupivacaine 0.5%/EPINEPHrine 1:200,000 50 ML MDV ONE (10:51)
[2018-10-27] MEDS ORDERED: Lidocaine 1% with EPINEPHrine 1:100,000 20 ML MDV ONE (10:51)
--- NOTE | 2018-10-27 11:04 | PCM.PREANE ---
Preanesthetic Assessment - Anesthesia/Transfusion/Family Hx Anesthesia History: Prior Anesthesia Without Reaction Family History of Anesthesia Reaction: No Transfusion History: Prior Transfusion Without Reaction - Review of Systems General: No Symptoms Pulmonary: No Symptoms Cardiovascular: Dyspnea on Exertion Gastrointestinal: Abdominal Pain (RUQ) Neurological: No Symptoms Other: Reports: Diabetes (gestational) - Physical Assessment NPO Status Date: 10/27/18 NPO Status Time: 00:00 Pulse: 74 O2 Sat by Pulse Oximetry: 97 Respiratory Rate: 16 Blood Pressure: 154/90 Temperature: 36.2 C Vital Signs: Last Vital Signs Temp 36.2 C 10/27/18 10:10 Pulse 74 10/27/18 10:10 Resp 16 10/27/18 10:10 BP 154/97 H 10/27/18 10:20 Pulse Ox 97 10/27/18 10:10 Height: 1.75 m Weight: 121.563 kg ASA Class: 2 Mental Status: Alert & Oriented x3 Airway Class: Mallampati = 1 Dentition: Reports: Normal Dentition Thyro-Mental Finger Breadths: 3 Mouth Opening Finger Breadths: 3 ROM/Head Extension: Full Lungs: Clear to Auscultation, Normal Respiratory Effort Cardiovascular: Regular Rate, Regular Rhythm - Lab Values: Laboratory Last Values POC Glucose 122 mg/dL (70-105) H 10/27/18 10:23 Urine HCG, Qual Negative (NEGATIVE) 10/27/18 10:00 - Allergies Allergies/Adverse Reactions: Allergies Allergy/AdvReac Type Severity Reaction Status Date / Time No Known Allergies Allergy Verified 10/26/18 10:56 - Blood Blood Available: No Product(s) Available: None - Anesthesia Plan Pre-Op Medication Ordered: Beta Don Beta Don: Labetalol Med Last Dose Date: 10/27/18 Med Last Dose Time: 11:05 - Acknowledgements Anesthesia Type Planned: General Anesthesia Pt an Appropriate Candidate for the Planned Anesthesia: Yes Alternatives and Risks of Anesthesia Discussed w Pt/Guardian: Yes Pt/Guardian Understands and Agrees with Anesthesia Plan: Yes PreAnesthesia Questionnaire - Past Health History Medical/Surgical History: Denies Medical/Surgical History HEENT History: Reports: Impaired Vision Cardiovascular History: Reports: None Respiratory History: Reports: None Gastrointestinal History: Reports: GERD Genitourinary History: Reports: STD, UTI, Recurrent Other Genitourinary History: GONORRHEA, CHLAMYDIA [employer]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: , Other (See Below) Musculoskeletal History: Reports: None Neurological History: Reports: None Psychiatric History: Reports: None, Anxiety Endocrine/Metabolic History: Reports: Diabetes, Gestational, Obesity/BMI 30+ Hematologic History: Reports: None Immunologic History: Reports: None Oncologic (Cancer) History: Reports: None Dermatologic History: Reports: None - Infectious Disease History Infectious Disease History: Reports: Other (See Below) Other Infectious Disease History: Gonorrhea, Chlamydia - Past Surgical History Head Surgeries/Procedures: Reports: None HEENT Surgical History: Reports: None Cardiovascular Surgical History: Reports: None Respiratory Surgical History: Reports: None GI Surgical History: Reports: None Female Surgical History: Reports: Section Male Surgical History: Reports: None Endocrine Surgical History: Reports: None Neurological Surgical History: Reports: None Musculoskeletal Surgical History: Reports: None Oncologic Surgical History: Reports: None Dermatological Surgical History: Reports: None - History Comment History Comment: levomir diabetes med - SUBSTANCE USE Smoking Status *Q: Current Some Day Smoker Tobacco Use Within Last Twelve Months: Cigarettes Second Hand Smoke Exposure: No Days Per Week of Alcohol Use: 0 Number of Drinks Per Day: 0 Total Drinks Per Week: 0 Recreational Drug Use History: No - HOME MEDS Home Medications: Home Meds Labetalol [Normodyne] 100 mg PO DAILY 10/26/18 [History] traMADol [Ultram] 50 mg PO Q4H PRN 10/26/18 [History] - CURRENT (IN HOUSE) MEDS Current Meds: Current Medications Lactated Ringer's (Ringers, Lactated) 1,000 mls @ 125 mls/hr IV ASDIRECTED JUSTO Stop: 10/27/18 23:00 Lidocaine/Sodium Bicarbonate (Buffered Lidocaine 1% In Ns 8.4%) 0.25 ml IDERM ONETIME PRN PRN Reason: Prior to IV Start Stop: 10/27/18 18:00 Sodium Chloride (Saline Flush) 10 ml FLUSH ASDIRECTED PRN PRN Reason: Keep Vein Open Stop: 10/27/18 18:00 Discontinued Medications Bupivacaine HCl/Epinephrine Bitart (Marcaine 0.5%/Epinephrine 1:200,000) Confirm Administered Dose 50 ml .ROUTE .STK-MED ONE Stop: 10/27/18 10:52 Cefazolin Sodium (Ancef) Confirm Administered Dose 1 gm .ROUTE .STK-MED ONE Stop: 10/27/18 10:50 Cefazolin Sodium (Ancef) Confirm Administered Dose 1 gm .ROUTE .ST-MED ONE Stop: 10/27/18 10:50 Dexamethasone (Dexamethasone) Confirm Administered Dose 4 mg .ROUTE .ST-MED ONE Stop: 10/27/18 10:44 Fentanyl (Sublimaze) Confirm Administered Dose 100 mcg .ROUTE .ST-MED ONE Stop: 10/27/18 10:43 Ketorolac Tromethamine (Toradol) Confirm Administered Dose 30 mg .ROUTE .[facility]- MED ONE Stop: 10/27/18 10:44 Lidocaine/Epinephrine (Xylocaine 1% With Epinephrine 1:100,000) Confirm Administered Dose 40 ml .ROUTE .[facility]-MED ONE Stop: 10/27/18 10:52 Midazolam HCl (Versed 1 Mg/Ml) Confirm Administered Dose 2 mg .ROUTE .[facility]-MED ONE Stop: 10/27/18 10:44 Ondansetron HCl (Zofran) Confirm Administered Dose 4 mg .ROUTE .ST-MED ONE Stop: 10/27/18 10:44 Propofol (Diprivan 20 Ml) Confirm Administered Dose 200 mg .ROUTE .[facility]-MED ONE Stop: 10/27/18 10:43 Rocuronium Fields (Zemuron) Confirm Administered Dose 50 mg .ROUTE .ST-MED ONE Stop: 10/27/18 10:44
[2018-10-27] MEDS ORDERED: Labetalol 100 MG/20 ML MDV ONE (11:09)
[2018-10-27] MEDS ORDERED: HYDROmorphone 0.5 MG/0.5 ML Syringe ONE ×4 (11:46→11:50)
[2018-10-27] MEDS ORDERED: hydrALAZINE 20 MG/ML SDV ONE (12:07)
[2018-10-27] MEDS ORDERED: Metoprolol Tartrate 5 MG/5 ML SDV ONE (12:29)
--- NOTE | 2018-10-27 13:00 | PCM.OPNOTE ---
- General Post-Op/Procedure Note Date of Surgery/Procedure: 10/27/18 Operative Procedure(s): laparoscopic cholecystectomy Findings: normal gallbladder anatomy Pre Op Diagnosis: symptomatic cholelithiasis Post-Op Diagnosis: same Anesthesia Technique: General ET Tube Primary Surgeon: Krissy Elizabeth Anesthesia Provider: Daniel Hernandez Pathology: Gallbladder Fluid Replacement, Intraop: 1,300 Output, Urine Amount: 0 EBL in mLs: 40 Complications: None apparent Condition: Good
--- NOTE | 2018-10-27 13:03 | PCM.PRNOTE ---
- Free Text/Narrative Note: OPERATIVE REPORT Date of Surgery/Procedure: October 27, 2017 Operative Procedure(s): laparoscopic cholecystectomy Findings: . Normal gallbladder anatomy Pre Op Diagnosis: Symptomatic cholelithiasis Post-Op Diagnosis: Same Anesthesia Technique: General ET Tube Primary Surgeon: Krissy Elizabeth MD Anesthesia Provider: Daniel Hernandez CRNA Pathology: Gallbladder Fluid Replacement, Intraop: 1300cc Output, Urine Amount: 0cc EBL: 40cc Drain/Tube Comments: None Indication for the procedure: The patient is a 33-year-old lady who presented to my office with right upper quadrant pain. She had workup which revealed cholelithiasis as well as adenomyomatosis of the gallbladder. The patient was counseled for laparoscopic cholecystectomy, with possible conversion to open. After discussion of the risks of infection, bleeding and injury to the bile duct as well as increased complication from previous intra-abdominal surgery, the patient's consent was obtained. Description of the procedure: The patient presented to the outpatient holding area on the day of the procedure. The history and physical were verified and consent was present and on the chart. The patient was taken back to the operating room and placed in supine position on the operating table. SCD boots were placed and functional prior to the start of the procedure. Preoperative antibiotics were administered according to SCIP protocol, Ancef 2 g IV. A surgical timeout was performed. The patient then had induction of general anesthesia and was intubated without difficulty. The patient was prepped and draped in standard surgical fashion. We began by making an infraumbilical vertical incision and deepened this down through subcutaneous fat to the level of the fascia. This was grasped and incised. We bluntly entered through the peritoneum and a finger sweep was done. A stay suture of 0 Vicryl was placed in the fascia. The 12 mm balloon Keane port was then inserted into the abdomen and the balloon inflated. Insufflation was attached and we had appropriate opening pressures. The abdomen was then insufflated to 15 mmHg. We inserted a scope into the abdomen and inspected the area where we had entered. There was no evidence of injury to surrounding structures with no evidence of bile or bleeding. A TAP block was then performed using 1% lidocaine with epinephrine mixed with 0.5% bupivicaine with epinephrine. The patient was then positioned with head up and right side up to facilitate exposure of the gallbladder. We then proceeded with placing our additional ports. A 5mm port was placed in the epigastric region. Two additional 5mm ports placed under direct visualization in the right upper quadrant. Once we had sufficiently exposed the dome of the gallbladder. This was grasped and retracted cephalad. We proceeded with our dissection to expose the cystic duct and cystic artery. We did have a critical view. The cystic duct and artery were then clipped and cut using endoscopic scissors. We then proceeded to fully dissect the gallbladder off of the cystic plate using the Bovie device. The gallbladder was in place in the Endo Catch bag and withdrawn towards the umbilical port. We then inspected the area of the dissection. A few drops of bile did escape from the clipped end of the gallbladder. This was removed using Ray-Tamara. Ray- Tamara's were also used to mop up any blood in the area. Some Surgicel was applied to the liver bed for hemostasis. We also is a Bovie device for hemostasis. We reinspected the area and there was no significant bleeding at the end of the case. The Surgicel and all Ray-Tamara's were removed from the abdomen. We desufflated the abdomen. The ports were then removed. The gallbladder was withdrawn through the umbilical port site. We then proceeded to close the umbilical port site using an 0 Vicryl stitch. We had good closure of the fascia. A superficial 4-0 monocryl suture was used to approximate the skin. The skin was covered with Dermabond surgical glue. The patient tolerated the procedure well and was extubated without difficulty. He was transported to the PACU in stable condition. All sponge, needle counts correct. I was scrubbed and actively participated in the entire procedure. No immediate complications noted. Complications: None apparent Condition: Good Krissy Elizabeth MD General Surgery
--- NOTE | 2018-10-27 13:13 | PCM48HPAN ---
Post Anesthesia Note - EVALUATION WITHIN 48HRS OF ANESTHETIC Vital Signs in Normal Range: Yes Patient Participated in Evaluation: Yes Respiratory Function Stable: Yes Airway Patent: Yes Cardiovascular Function Stable: Yes Hydration Status Stable: Yes Pain Control Satisfactory: Yes Nausea and Vomiting Control Satisfactory: Yes Mental Status Recovered: Yes Pulse Rate: 74 Resp Rate: 16 Temperature: 36.2 C Blood Pressure: 154/90
--- NOTE | 2018-10-27 13:13 | PCM.POSTAN ---
POST ANESTHESIA ASSESSMENT - MENTAL STATUS Mental Status: Alert, Oriented - RESPIRATORY Respiratory Status: Respiratory Rate WNL, Airway Patent, O2 Saturation Stable, Supplemental Oxygen - CARDIOVASCULAR CV Status: Pulse Rate WNL, Blood Pressure Stable - GASTROINTESTINAL GI Status: No Symptoms - POST OP HYDRATION Hydration Status: Adequate & Stable
[2018-10-27] MEDS ORDERED: Acetaminophen/HYDROcodone 325-5 MG Tab PO PRN (13:34)
[2018-10-27] MEDS ORDERED: fentaNYL 100 MCG/2 ML SDV IVPUSH ONE (14:14)
[2018-10-27] MEDS ORDERED: Ondansetron 4 MG/2 ML SDV IVPUSH ONE (14:45)
[2018-10-27] MEDS ORDERED: hydrOXYzine HCl 25 MG/ML SDV IM ONE (14:45)
== END 2018-10-27 17:20 | disposition home or self-care (01) ==
LOC: JD.SDS 08:39
PROVIDERS: ATTEND Surgery
DX: K80.10 Calculus of gallbladder with chronic cholecystitis without obstruction (principal); F17.210 Nicotine dependence, cigarettes, uncomplicated; E11.9 Type 2 diabetes mellitus without complications; E66.9 Obesity, unspecified; Z68.39 Body mass index [BMI] 39.0-39.9, adult; Z87.440 Personal history of urinary (tract) infections; Z79.899 Other long term (current) drug therapy
CPT/HCPCS: 47562; 81025; 82962; A9270; J0360; J0690; J1100; J1170; J1885; J2250; J2405; J2704; J3010; J3410; J3490; J7120; 00790

== ENCOUNTER 2019-06-21 05:17 | Emergency (ER) | payer SELFPAY ==
[2019-06-21] MEDS ORDERED: Sodium Chloride 0.9% 10 ML Syringe FLUSH PRN (05:49)
[2019-06-21] MEDS ORDERED: HYDROmorphone 0.5 MG/0.5 ML Syringe IVPUSH ONE ×2 (05:50→08:04)
[2019-06-21] MEDS ORDERED: Ondansetron 4 MG/2 ML SDV IVPUSH ONE (05:50)
[2019-06-21] MEDS ORDERED: Lactated Ringers 1,000 ML IV ONE ×2 (05:51→07:08)
--- NOTE | 2019-06-21 06:10 | EDM.PDOC ---
<Eladio Hahn - Last Filed: 06/24/19 13:16> ED HPI GENERAL MEDICAL PROBLEM - General Chief Complaint: Abdominal Pain Stated Complaint: ABDOMINAL PAIN Time Seen by Provider: 06/21/19 05:42 Source of Information: Reports: Patient, RN Notes Reviewed - History of Present Illness INITIAL COMMENTS - FREE TEXT/NARRATIVE: 34 year old female presents to ED with upper abd pain, nausea and one episode of vomiting. She started having achy abd pain yesterday afternoon that became worse after trying to eat dinner last evening. She has had continued upper abd and RUQ pain since last evening that hasn't gone away. She has also had 1 episode of quite severe diarrhea. No fever or chills. She just found out she was a few days ago with LMP about 2 months ago. She is and also did have her GB out about 8 months ago with no further GI problems up until yesterday. No other family members ill at this time. No chest pain or difficulty breathing. Right Upper Abdomen Pain Score (Numeric/FACES): 8 - Related Data Allergies Allergy/AdvReac Type Severity Reaction Status Date / Time No Known Allergies Allergy Verified 06/21/19 05:29 Home Meds: Home Meds Cephalexin [Keflex] 500 mg PO TID #27 capsule 06/21/19 [Rx] Ondansetron [Zofran] 4 mg BUCCAL Q6H PRN #6 tab 06/21/19 [Rx] oxyCODONE HCl/Acetaminophen [Percocet 5-325 mg Tablet] 1 - 2 each PO Q4H PRN # 14 tablet 06/21/19 [Rx] Past Medical History - Past Health History Medical/Surgical History: Denies Medical/Surgical History HEENT History: Reports: Impaired Vision Cardiovascular History: Reports: None, Other (See Below) Other Cardiovascular History: pre eclampsia Respiratory History: Reports: None Gastrointestinal History: Reports: GERD Genitourinary History: Reports: STD, UTI, Recurrent Other Genitourinary History: GONORRHEA, CHLAMYDIA 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: , Other (See Below) Musculoskeletal History: Reports: None Neurological History: Reports: None Psychiatric History: Reports: None, Anxiety Endocrine/Metabolic History: Reports: Diabetes, Gestational, Obesity/BMI 30+ Hematologic History: Reports: None Immunologic History: Reports: None Oncologic (Cancer) History: Reports: None Dermatologic History: Reports: None - Infectious Disease History Infectious Disease History: Reports: Other (See Below) Other Infectious Disease History: Gonorrhea, Chlamydia - Past Surgical History Head Surgeries/Procedures: Reports: None HEENT Surgical History: Reports: None Cardiovascular Surgical History: Reports: None Respiratory Surgical History: Reports: None GI Surgical History: Reports: Cholecystectomy Female Surgical History: Reports: Section Endocrine Surgical History: Reports: None Neurological Surgical History: Reports: None Musculoskeletal Surgical History: Reports: None Oncologic Surgical History: Reports: None Dermatological Surgical History: Reports: None - History Comment History Comment: levomir diabetes med Social & Family History - Family History Family Medical History: Noncontributory - Tobacco Use Smoking Status *Q: Never Smoker Second Hand Smoke Exposure: No - Caffeine Use Caffeine Use: Reports: None - Recreational Drug Use Recreational Drug Use: No ED ROS GENERAL - Review of Systems Review Of Systems: See Below Constitutional: Denies: Fever, Chills, Diaphoresis HEENT: Reports: No Symptoms Respiratory: Denies: Shortness of Breath, Cough Cardiovascular: Denies: Chest Pain GI/Abdominal: Reports: Abdominal Pain, Diarrhea, Nausea. Denies: Vomiting : Reports: No Symptoms Musculoskeletal: Reports: Back Pain Skin: Reports: No Symptoms Neurological: Reports: No Symptoms ED EXAM, NEURO - Physical Exam Exam: See Below General Appearance: Alert, Moderate Distress Eye Exam: Bilateral Eye: PERRL Throat/Mouth: Normal Inspection Head Exam: Atraumatic Neck: Supple Respiratory/Chest: No Respiratory Distress, Lungs Clear, Normal Breath Sounds Cardiovascular: Regular Rate, Rhythm GI/Abdominal: Tender (upper mid abd and tender RUQ, lower abd soft and nontender ) Neurological: Alert, No Motor/Sensory Deficits Back Exam: CVA Tenderness (R) Extremities: Normal Inspection, Normal Range of Motion Skin Exam: Warm, Dry, Normal Color Course - Vital Signs Last Recorded V/S: Last Vital Signs Temp 37.6 C 06/21/19 08:53 Pulse 78 06/21/19 08:53 Resp 16 06/21/19 08:53 BP 153/91 H 06/21/19 08:53 Pulse Ox 99 06/21/19 08:53 - Orders/Labs/Meds Labs: Laboratory Tests 06/21/19 06/21/19 06/21/19 Range/Units 05:53 05:53 06:29 WBC 9.39 (3.98-10.04) K/mm3 RBC 4.68 (3.98-5.22) M/mm3 Hgb 12.7 D (11.2-15.7) gm/dl Hct 38.3 (34.1-44.9) % MCV 81.8 (79.4-94.8) fl MCH 27.1 (25.6-32.2) pg MCHC 33.2 (32.2-35.5) g/dl RDW Std Deviation 48.2 H (36.4-46.3) fL Plt Count 223 D (182-369) K/mm3 MPV 11.1 (9.4-12.3) fl Neut % (Auto) 74.8 H (34.0-71.1) % Lymph % (Auto) 18.2 L (19.3-51.7) % [place] % (Auto) 5.1 (4.7-12.5) % Eos % (Auto) 1.7 (0.7-5.8) Baso % (Auto) 0.2 (0.1-1.2) % Neut # (Auto) 7.02 H (1.56-6.13) K/mm3 Lymph # (Auto) 1.71 (1.18-3.74) K/mm3 [place] # (Auto) 0.48 H (0.24-0.36) K/mm3 Eos # (Auto) 0.16 (0.04-0.36) K/mm3 Baso # (Auto) 0.02 (0.01-0.08) K/mm3 Sodium 137 (136-145) mEq/L Potassium 3.3 L (3.5-5.1) mEq/L Chloride 102 (98-107) mEq/L Carbon Dioxide 19 L (21-32) mEq/L Anion Gap 19.3 H (5-15) BUN 7 (7-18) mg/dL Creatinine 0.6 (0.55-1.02) mg/dL Est Cr Clr Drug Dosing TNP Estimated GFR (MDRD) > 60 (>60) mL/min BUN/Creatinine Ratio 11.7 L (14-18) Glucose 111 H (74-106) mg/dL Calcium 8.5 (8.5-10.1) mg/dL Total Bilirubin 0.6 (0.2-1.0) mg/dL AST 11 L (15-37) U/L ALT 27 (14-59) U/L Alkaline Phosphatase 62 (46-116) U/L Total Protein 7.8 (6.4-8.2) g/dl Albumin 3.3 L (3.4-5.0) g/dl Globulin 4.5 gm/dL Albumin/Globulin Ratio 0.7 L (1-2) HCG, Quant 988080.0 mIU/mL Urine Color Yellow (Yellow) Urine Appearance Clear (Clear) Urine pH 6.0 (5.0-8.0) Ur Specific [place] 1.020 (1.005-1.030) Urine Protein Negative (Negative) Urine Glucose (UA) Negative (Negative) Urine Ketones Negative (Negative) Urine Occult Blood Negative (Negative) Urine Nitrite Negative (Negative) Urine Bilirubin Negative (Negative) Urine Urobilinogen 0.2 (0.2-1.0) Ur Leukocyte Esterase 2+ H (Negative) Urine RBC 5-10 H (0-5) /hpf Urine WBC 10-20 H (0-5) /hpf Ur Squamous Epith Cells 5-10 H (0-5) /hpf Urine Bacteria Moderate H (FEW) /hpf Urine Mucus Not seen (FEW) /hpf Meds: Medications Discontinued Medications Generic Name Dose Route Start Last Admin Trade Name Freq PRN Reason Stop Dose Admin Hydromorphone HCl 0.5 mg 06/21/19 05:50 06/21/19 06:00 Dilaudid IVPUSH 06/21/19 05:51 0.5 mg ONETIME ONE Administration Hydromorphone HCl 0.5 mg 06/21/19 08:04 06/21/19 08:07 Dilaudid IVPUSH 06/21/19 08:05 0.5 mg ONETIME ONE Administration Lactated Ringer's 1,000 mls @ 999 mls/hr 06/21/19 05:51 06/21/19 05:58 Ringers, Lactated IV 06/21/19 06:51 999 mls/hr .BOLUS ONE Administration Lactated Ringer's 1,000 mls @ 999 mls/hr 06/21/19 07:08 06/21/19 07:54 Ringers, Lactated IV 06/21/19 08:08 999 mls/hr .BOLUS ONE Administration Ceftriaxone Sodium 2 gm/ 100 mls @ 200 mls/hr 06/21/19 07:10 06/21/19 07:27 Sodium Chloride IV 06/21/19 07:39 200 mls/hr ONETIME ONE Administration Ondansetron HCl 4 mg 06/21/19 05:50 06/21/19 05:59 Zofran IVPUSH 06/21/19 05:51 4 mg ONETIME ONE Administration Sodium Chloride 10 ml 06/21/19 05:49 06/21/19 06:00 Saline Flush FLUSH 10 ml ASDIRECTED PRN Administration Keep Vein Open - Re-Assessments/Exams Free Text/Narrative Re-Assessment/Exam: 06/21/19 07:12 Ua shows UTI, probable early pyelo. anion gap is high, CO2 low so quite dehydrated. Will give 2nd liter LR, urine culture will be ordered. rocephin 2 gram IV ordered. Change of shift, will transfer care to Dr Ledesma. Departure - Departure Disposition: Home, Self-Care 01 Clinical Impression: Pyelonephritis, First trimester - Discharge Information Prescriptions: Cephalexin [Keflex] 500 mg PO TID #27 capsule Ondansetron [Zofran] 4 mg BUCCAL Q6H PRN #6 tab PRN Reason: nausea or vomiting oxyCODONE HCl/Acetaminophen [Percocet 5-325 mg Tablet] 1 - 2 each PO Q4H PRN # 14 tablet PRN Reason: pain relief. Instructions: Pyelonephritis, Adult, First Trimester of Referrals: PCP,None [Primary Care Provider] - Forms: ED Department Discharge Additional Instructions: Valuation in the emergency room this morning reveals a that you have come down with a urinary tract infection affecting your kidneys which we called pyelonephritis. Associated with first term . Rated with intravenous fluids and medication to arrest vomiting and Dilaudid 0.5 mg IV x2 doses for pain relief. Initial doses of antibiotics were provided through the ED with Rocephin 2 g being given intravenously. He will need to take oral antibiotics cephalexin 500 mg 3 times daily for the next 9 days to clear up infection completely. The first tablet would be due at bedtime tonight. May use Percocet tabs 5/325 mg 1 or 2 tablets with food every 6 hours as necessary for pain relief. Use Zofran under the tongue every 4-6 hours as necessary for relief of nausea or vomiting. Expect marked improvement over the next 36 to 48 hours once the antibiotics become effective pain should improve dramatically. Does follow-up with your METER TESTER POLYPHASE or primary care physician within the next 10 days. Sepsis Event Note - Evaluation Sepsis Screening Result: No Definite Risk - Focused Exam Date Exam was Performed: 06/24/19 Time Exam was Performed: 13:16 <Marino Ledesma - Last Filed: 06/25/19 02:58> Course - Re-Assessments/Exams Free Text/Narrative Re-Assessment/Exam: 06/21/19 08:04: Is complaining of more back pain. Given second dose of Dilaudid 0.5 mg IV for suspected pyelonephritis. Plan will be to discharge her home on Percocet tabs 5 325 mg 1 or 2 every 4-6 hours for pain relief for the next 2 days. Antibiotic will be cephalexin 500 mg 3 times daily for the next 9 days to clear up polynephritis. Given a prescription for 6 tablets of Zofran 4 mg strength 1 tablet under the tongue every 6 hours necessary for nausea or vomiting relief. Has completed her Rocephin 2 g intravenously and will be discharged at this time Departure - Departure Time of Disposition: 08:30 Condition: Fair - Discharge Information *PRESCRIPTION DRUG MONITORING PROGRAM REVIEWED*: Not Applicable *COPY OF PRESCRIPTION DRUG MONITORING REPORT IN PATIENT ALICJA: Not Applicable Sepsis Event Note - Focused Exam Date Exam was Performed: 06/25/19 Time Exam was Performed: 02:58
[2019-06-21] MEDS ORDERED: cefTRIAXone 2 GM in Sodium Chloride 0.9% 100 ML IV ONE (07:10)
== END 2019-06-21 08:53 | disposition home or self-care (01) ==
LOC: JD.ED 05:17
DX: O23.01 Infections of kidney in pregnancy, first trimester (principal); O99.281 Endocrine, nutritional and metabolic diseases complicating pregnancy, first trimester; E11.9 Type 2 diabetes mellitus without complications; E66.9 Obesity, unspecified
CPT/HCPCS: 36415; 80053; 81001; 84702; 85025; 87086; 96361; 96365; 96375; 96376; 99284; J0696; J1170; J2405; J7050; J7120

== ENCOUNTER 2020-01-29 20:02 | Emergency (ER) | payer MEDICAID ==
[2020-01-29] MEDS ORDERED: Ondansetron 4 MG Tab.DIS PO ONE (20:48)
--- NOTE | 2020-01-29 20:51 | EDM.PDOC ---
ED HPI GENERAL MEDICAL PROBLEM - General Chief Complaint: Abdominal Pain Stated Complaint: ABDOMINAL PAIN Time Seen by Provider: 01/29/20 20:26 Source of Information: Reports: Patient, RN Notes Reviewed History Limitations: Reports: No Limitations - History of Present Illness INITIAL COMMENTS - FREE TEXT/NARRATIVE: Patient is a 34-year-old female who presents to the ED for evaluation of her abdominal pain. Patient states for the last 3 days, she has had left back/flank pain, that radiates down into her left pelvis. She states she had a similar pain like this in June when she had a UTI. She states that her last menstrual period was roughly 2 to 3 weeks ago, so she denies any chance of . She is also denying any chance of any sexually transmitted diseases. She was feeling a little bit nauseous, but has no other sick-like symptoms, fever/chills, cough/shortness of breath, vomiting or diarrhea. She has had her gallbladder removed but still retains her appendix. She states that she had a good bowel movement a couple hours ago, and states she is very regular with her bowels. She did take some naproxen earlier, but this did not seem to help much. She also took some Tylenol again and this did not help. She states that the pain seems to always be there, nothing really seems to make it better or worse. Left Flank Pain Score (Numeric/FACES): 8 - Related Data Allergies Allergy/AdvReac Type Severity Reaction Status Date / Time No Known Allergies Allergy Verified 01/29/20 20:15 Home Meds: Home Meds Acetaminophen [Tylenol] 650 mg PO Q6H PRN 11/13/19 [History] Vits #93/Iron Fum/FA [ Formula Tablet] 1 each PO DAILY 11/13/19 [History] Past Medical History HEENT History: Reports: Impaired Vision Cardiovascular History: Reports: Other (See Below) Other Cardiovascular History: pre eclampsia Gastrointestinal History: Reports: GERD Genitourinary History: Reports: STD, UTI, Recurrent Other Genitourinary History: GONORRHEA, CHLAMYDIA [employer] History: Reports: , Other (See Below) Psychiatric History: Reports: Anxiety Endocrine/Metabolic History: Reports: Diabetes, Gestational, Obesity/BMI 30+ - Infectious Disease History Infectious Disease History: Reports: Other (See Below) Other Infectious Disease History: Gonorrhea, Chlamydia - Past Surgical History GI Surgical History: Reports: Cholecystectomy Female Surgical History: Reports: Section Social & Family History - Family History Family Medical History: Noncontributory - Tobacco Use Smoking Status *Q: Never Smoker Second Hand Smoke Exposure: No - Caffeine Use Caffeine Use: Reports: Energy Drinks - Recreational Drug Use Recreational Drug Use: No ED ROS GENERAL - Review of Systems Review Of Systems: Comprehensive ROS is negative, except as noted in HPI. ED EXAM, RENAL/ - Physical Exam Exam: See Below Exam Limited By: No Limitations General Appearance: Alert, WD/WN, No Apparent Distress Respiratory/Chest: No Respiratory Distress, Lungs Clear, Normal Breath Sounds, No Accessory Muscle Use, Chest Non-Tender Cardiovascular: Normal Peripheral Pulses, Regular Rate, Rhythm, No Murmur GI/Abdominal: Normal Bowel Sounds, Soft, No Distention, No Mass, Tender (suprapubic tenderness and into LLQ) Extremities: Normal Inspection, Normal Capillary Refill Neurological: Alert, Oriented, Normal Cognition, No Motor/Sensory Deficits Psychiatric: Normal Affect, Normal Mood Skin Exam: Warm, Dry, Intact, Normal Color, No Rash Course - Vital Signs Last Recorded V/S: Last Vital Signs Temp 97.5 F 01/29/20 20:12 Pulse 88 01/29/20 20:12 Resp 18 01/29/20 20:12 BP 173/106 H 01/29/20 20:12 Pulse Ox 99 01/29/20 20:12 - Orders/Labs/Meds Orders: Active Orders 24 hr Category Date Time Status Peripheral IV Care [RC] . DIRECTED Care 01/29/20 20:52 Ordered Abdomen Pelvis w Cont [CT] Stat Exams 01/29/20 20:52 Ordered Sodium Chloride 0.9% [Saline Flush] Med 01/29/20 20:52 Ordered 10 ml FLUSH ASDIRECTED PRN Peripheral IV Insertion Adult [OM.PC] Routine Oth 01/29/20 20:52 Ordered Medication Orders Sodium Chloride (Saline Flush) 10 ml FLUSH ASDIRECTED PRN PRN Reason: Keep Vein Open Last Admin: 01/29/20 21:17 Dose: 10 ml Documented by: BOAZ Labs: Laboratory Tests 01/29/20 01/29/20 01/29/20 Range/Units 20:35 20:35 21:03 WBC 4.78 (3.98-10.04) K/mm3 RBC 4.54 (3.98-5.22) M/mm3 Hgb 12.0 D (11.2-15.7) gm/dl Hct 36.8 (34.1-44.9) % MCV 81.1 (79.4-94.8) fl MCH 26.4 (25.6-32.2) pg MCHC 32.6 (32.2-35.5) g/dl RDW Std Deviation 46.6 H (36.4-46.3) fL Plt Count 221 (182-369) K/mm3 MPV 11.2 (9.4-12.3) fl Neut % (Auto) 60.6 (34.0-71.1) % Lymph % (Auto) 28.0 (19.3-51.7) % [place] % (Auto) 7.5 (4.7-12.5) % Eos % (Auto) 3.1 (0.7-5.8) Baso % (Auto) 0.6 (0.1-1.2) % Neut # (Auto) 2.89 (1.56-6.13) K/mm3 Lymph # (Auto) 1.34 (1.18-3.74) K/mm3 [place] # (Auto) 0.36 (0.24-0.36) K/mm3 Eos # (Auto) 0.15 (0.04-0.36) K/mm3 Baso # (Auto) 0.03 (0.01-0.08) K/mm3 Sodium (136-145) mEq/L Potassium (3.5-5.1) mEq/L Chloride (98-107) mEq/L Carbon Dioxide (21-32) mEq/L Anion Gap (5-15) BUN (7-18) mg/dL Creatinine (0.55-1.02) mg/dL Est Cr Clr Drug Dosing mL/min Estimated GFR (MDRD) (>60) mL/min BUN/Creatinine Ratio (14-18) Glucose (74-106) mg/dL Calcium (8.5-10.1) mg/dL Total Bilirubin (0.2-1.0) mg/dL AST ALT Alkaline Phosphatase (46-116) U/L Total Protein (6.4-8.2) g/dl Albumin (3.4-5.0) g/dl Globulin gm/dL Albumin/Globulin Ratio (1-2) Urine Color Yellow (Yellow) Urine Appearance Clear (Clear) Urine pH 7.5 (5.0-8.0) Ur Specific [place] 1.025 (1.005-1.030) Urine Protein Negative (Negative) Urine Glucose (UA) Negative (Negative) Urine Ketones Trace H (Negative) Urine Occult Blood Negative (Negative) Urine Nitrite Negative (Negative) Urine Bilirubin Negative (Negative) Urine Urobilinogen 2.0 H (0.2-1.0) Ur Leukocyte Esterase Negative (Negative) Urine RBC 0-5 (0-5) /hpf Urine WBC 0-5 (0-5) /hpf Ur Squamous Epith Cells 5-10 H (0-5) /hpf Urine Bacteria Few (FEW) /hpf Urine Mucus Few (FEW) /hpf Urine HCG, Qual Negative (NEGATIVE) 01/29/20 Range/Units 21:03 WBC (3.98-10.04) K/mm3 RBC (3.98-5.22) M/mm3 Hgb (11.2-15.7) gm/dl Hct (34.1-44.9) % MCV (79.4-94.8) fl MCH (25.6-32.2) pg MCHC (32.2-35.5) g/dl RDW Std Deviation (36.4-46.3) fL Plt Count (182-369) K/mm3 MPV (9.4-12.3) fl Neut % (Auto) (34.0-71.1) % Lymph % (Auto) (19.3-51.7) % [place] % (Auto) (4.7-12.5) % Eos % (Auto) (0.7-5.8) Baso % (Auto) (0.1-1.2) % Neut # (Auto) (1.56-6.13) K/mm3 Lymph # (Auto) (1.18-3.74) K/mm3 [place] # (Auto) (0.24-0.36) K/mm3 Eos # (Auto) (0.04-0.36) K/mm3 Baso # (Auto) (0.01-0.08) K/mm3 Sodium 138 (136-145) mEq/L Potassium 3.6 (3.5-5.1) mEq/L Chloride 102 (98-107) mEq/L Carbon Dioxide 24 (21-32) mEq/L Anion Gap 15.6 H (5-15) BUN 11 (7-18) mg/dL Creatinine 0.8 (0.55-1.02) mg/dL Est Cr Clr Drug Dosing 104.53 mL/min Estimated GFR (MDRD) > 60 (>60) mL/min BUN/Creatinine Ratio 13.8 L (14-18) Glucose 113 H (74-106) mg/dL Calcium 8.3 L (8.5-10.1) mg/dL Total Bilirubin 0.6 (0.2-1.0) mg/dL AST TNP ALT TNP Alkaline Phosphatase 79 (46-116) U/L Total Protein 7.3 (6.4-8.2) g/dl Albumin 3.6 (3.4-5.0) g/dl Globulin 3.7 gm/dL Albumin/Globulin Ratio 1.0 (1-2) Urine Color (Yellow) Urine Appearance (Clear) Urine pH (5.0-8.0) Ur Specific [place] (1.005-1.030) Urine Protein (Negative) Urine Glucose (UA) (Negative) Urine Ketones (Negative) Urine Occult Blood (Negative) Urine Nitrite (Negative) Urine Bilirubin (Negative) Urine Urobilinogen (0.2-1.0) Ur Leukocyte Esterase (Negative) Urine RBC (0-5) /hpf Urine WBC (0-5) /hpf Ur Squamous Epith Cells (0-5) /hpf Urine Bacteria (FEW) /hpf Urine Mucus (FEW) /hpf Urine HCG, Qual (NEGATIVE) Meds: Medications Generic Name Dose Route Start Last Admin Trade Name Malcolmq PRN Reason Stop Dose Admin Sodium Chloride 10 ml 01/29/20 20:52 01/29/20 21:17 Saline Flush FLUSH 10 ml ASDIRECTED PRN Administration Keep Vein Open Discontinued Medications Generic Name Dose Route Start Last Admin Trade Name Fremarti PRN Reason Stop Dose Admin Hydromorphone HCl 0.5 mg 01/29/20 20:58 01/29/20 21:15 Dilaudid IVPUSH 01/29/20 20:59 0.5 mg ONETIME ONE Administration Ondansetron HCl 4 mg 01/29/20 20:48 Zofran Odt PO 01/29/20 20:49 ONETIME ONE Ondansetron HCl 4 mg 01/29/20 20:58 01/29/20 21:14 Zofran IVPUSH 01/29/20 20:59 4 mg ONETIME ONE Administration - Re-Assessments/Exams Free Text/Narrative Re-Assessment/Exam: 01/29/20 20:50 Patient presents to the ER for the evaluation of her ongoing lower abdomen pain. Urinalysis will be obtained, along with hCG to rule out , and to evaluate for possible UTI as she states she is had pain like this prior with a UTI. If this is negative, then we will go forward with labs and imaging. 01/29/20 22:22 The patient did have labs drawn, as her urinalysis was unremarkable. She has no sign of a UTI. CT was also taken with IV contrast, there is mild wall thickening of the sigmoid colon without surrounding inflammation cannot exclude early or mild sigmoid colitis. Remainder of the colon is unremarkable. There is a nonspecific left ovarian cyst as well. This may represent a single septated cyst or 2 adjacent cyst extending over a region of 4.5 cm. No acute features are evident. No inflammation or adjacent free fluid is appreciated. The appendix was seen, and there is no evidence of appendicitis. At this time it looks like the colitis might be causing her abdomen discomfort. I will try to get her home on a course of prednisone and Bentyl for pain management, and have her follow-up with [facility] for the cyst. Departure - Departure Time of Disposition: 22:23 Disposition: Home, Self-Care 01 Condition: Good Clinical Impression: Left ovarian cyst, Colitis - Discharge Information *PRESCRIPTION DRUG MONITORING PROGRAM REVIEWED*: No *COPY OF PRESCRIPTION DRUG MONITORING REPORT IN PATIENT ALICJA: No Instructions: Colitis, Ovarian Cyst, [id number] Referrals: PCP,None [Primary Care Provider] - Forms: ED Department Discharge Additional Instructions: You were evaluated in the ER today for your abdomen pain. Your CT demonstrated that you have colitis, which is an inflammation of your intestines. This is mainly within the sigmoid region of your large bowel. You will be treated with a course of steroids, and dicyclomine for abdomen cramping. This should provide you pretty good pain relief. Your CT also demonstrated an ovarian cyst on the left side, there was no rupture of the cyst, and it does not look to have any inflammation around it. I recommend you follow-up with [facility] for further management of the cyst. Your appendix was seen, and was not inflamed you are not suffering from appendicitis. You may use Tylenol or ibuprofen every 6 hours as needed for further pain relief. Do not exceed 4000 mg Tylenol or 3200 mg ibuprofen in a 24-hour time span. You should follow-up with your regular care provider, sometime by the end of this week, or the beginning of next week, to make sure that your symptoms are getting better as expected. Please return to the ER at any time if your symptoms change or worsen. Sepsis Event Note (ED) - Evaluation Sepsis Screening Result: No Definite Risk - Focused Exam Vital Signs: Vital Signs Temp Pulse Resp BP Pulse Ox 01/29/20 20:12 97.5 F 88 18 173/106 H 99 - My Orders Last 24 Hours: My Active Orders 01/29/20 20:52 Peripheral IV Care [RC] . DIRECTED Abdomen Pelvis w Cont [CT] Stat Sodium Chloride 0.9% [Saline Flush] 10 ml FLUSH ASDIRECTED PRN Peripheral IV Insertion Adult [OM.PC] Routine - Assessment/Plan Last 24 Hours: My Active Orders 01/29/20 20:52 Peripheral IV Care [RC] . DIRECTED Abdomen Pelvis w Cont [CT] Stat Sodium Chloride 0.9% [Saline Flush] 10 ml FLUSH ASDIRECTED PRN Peripheral IV Insertion Adult [OM.PC] Routine
[2020-01-29] MEDS ORDERED: Sodium Chloride 0.9% 10 ML Syringe FLUSH PRN (20:52)
[2020-01-29] MEDS ORDERED: Ondansetron 4 MG/2 ML SDV IVPUSH ONE (20:58)
[2020-01-29] MEDS ORDERED: HYDROmorphone 0.5 MG/0.5 ML Syringe IVPUSH ONE (20:58)
[2020-01-29] MEDS ORDERED: Dexamethasone 10 MG/ML SDV IVPUSH ONE (22:24)
== END 2020-01-29 22:42 | disposition home or self-care (01) ==
LOC: JD.ED 20:02
DX: K52.9 Noninfective gastroenteritis and colitis, unspecified (principal); N83.202 Unspecified ovarian cyst, left side; E66.9 Obesity, unspecified; Z68.34 Body mass index [BMI] 34.0-34.9, adult; Z90.49 Acquired absence of other specified parts of digestive tract; Z98.890 Other specified postprocedural states
CPT/HCPCS: 36415; 74177; 80053; 81001; 81025; 85025; 96374; 96375; 99284; J1100; J1170; J2405

== ENCOUNTER 2020-05-28 14:17 | Emergency (ER) | payer MEDICAID ==
--- NOTE | 2020-05-28 14:45 | EDM.PDOC ---
ED HPI GENERAL MEDICAL PROBLEM - General Chief Complaint: Cardiovascular Problem Stated Complaint: B HAND NUMBNESS/TINGLING,HIGH BP Time Seen by Provider: 05/28/20 14:42 - History of Present Illness INITIAL COMMENTS - FREE TEXT/NARRATIVE: 35-year-old female presents the emergency room with bilateral arm numbness and tingling and chest pain. This started last night and has seemed to worsen somewhat today the chest pain has subsided somewhat but she still has bilateral arm numbness and tingling. The patient denies any triggers to her anxiety patient was started on Suboxone at the beginning of the year the dosage has not been changed and up until last night seem to be doing pretty well with it. She also has noticed that her blood pressure is going up. The patient has a lot of stress as she has 5 kids at home. She other than this has not been aware of any significant triggers. Chest pain is somewhat vague and is not substernal or left-sided. The arm numbness and tingling can persist without chest pain. Bilateral Arm Pain Score (Numeric/FACES): 5 - Related Data Allergies Allergy/AdvReac Type Severity Reaction Status Date / Time No Known Allergies Allergy Verified 05/28/20 14:32 Home Meds: Home Meds Buprenorphine HCl/Naloxone HCl [Suboxone 4 mg-1 mg Sl Film] 8 mg SL DAILY 05/28/20 [History] Nitrofurantoin Monohyd/M-Cryst [Macrobid 100 mg Capsule] 100 mg PO BID #10 capsule 05/28/20 [Rx] Past Medical History - Past Health History Medical/Surgical History: Denies Medical/Surgical History HEENT History: Reports: Impaired Vision Cardiovascular History: Reports: Hypertension, Other (See Below) Other Cardiovascular History: pre eclampsia Gastrointestinal History: Reports: GERD Genitourinary History: Reports: STD, UTI, Recurrent Other Genitourinary History: GONORRHEA, CHLAMYDIA [employer]EL[employer] History: Reports: Neurological History: Reports: None Psychiatric History: Reports: Anxiety Endocrine/Metabolic History: Reports: Diabetes, Gestational, Obesity/BMI 30+ Hematologic History: Reports: None Immunologic History: Reports: None Oncologic (Cancer) History: Reports: None Dermatologic History: Reports: None - Infectious Disease History Infectious Disease History: Reports: Other (See Below) Other Infectious Disease History: Gonorrhea, Chlamydia - Past Surgical History GI Surgical History: Reports: Cholecystectomy Female Surgical History: Reports: Section Social & Family History - Family History Family Medical History: No Pertinent Family History - Tobacco Use Tobacco Use Status *Q: Never Tobacco User - Caffeine Use Caffeine Use: Reports: Tea - Recreational Drug Use Recreational Drug Use: No ED ROS GENERAL - Review of Systems Review Of Systems: See Below Constitutional: Reports: No Symptoms HEENT: Reports: No Symptoms Respiratory: Reports: No Symptoms Cardiovascular: Reports: Chest Pain Endocrine: Reports: No Symptoms GI/Abdominal: Reports: No Symptoms : Reports: No Symptoms Musculoskeletal: Reports: No Symptoms Skin: Reports: No Symptoms Neurological: Reports: No Symptoms Psychiatric: Reports: Anxiety. Denies: Depression, Suicidal Ideation Hematologic/Lymphatic: Reports: No Symptoms Immunologic: Reports: No Symptoms ED EXAM, GENERAL - Physical Exam Exam: See Below Exam Limited By: No Limitations General Appearance: Alert, Anxious Eye Exam: Bilateral Eye: Normal Inspection, PERRL Ears: Normal External Exam, Normal Canal, Hearing Grossly Normal Nose: Normal Inspection, Normal Mucosa, No Blood Throat/Mouth: Normal Inspection, Normal Lips, Normal Teeth, Normal Gums, Normal Oropharynx, Normal Voice, No Airway Compromise Head: Atraumatic, Normocephalic Neck: Normal Inspection, Supple, Non-Tender, Full Range of Motion Respiratory/Chest: No Respiratory Distress, Lungs Clear, Normal Breath Sounds, No Accessory Muscle Use, Chest Non-Tender Cardiovascular: Regular Rate, Rhythm, No Edema, No Murmur GI/Abdominal: Normal Bowel Sounds, Soft, Non-Tender Back Exam: Normal Inspection. No: CVA Tenderness (L), CVA Tenderness (R) Extremities: No Pedal Edema Psychiatric: Anxious, Tearful Skin Exam: Warm, Dry, Intact Lymphatic: No Adenopathy #1 Interpretation EKG Date: 05/28/20 Rhythm: NSR Rate (Beats/Min): 73 [place]: Normal P-Wave: Present QRS: Normal ST-T: Normal QT: Prolonged (Borderline) NE/PQ Interval: Normal EKG Interpretation Comments: Abnormal EKG borderline elevation in QTC Course - Vital Signs Last Recorded V/S: Last Vital Signs Temp 36.6 C 05/28/20 14:29 Pulse 86 05/28/20 14:29 Resp 16 05/28/20 14:29 BP 183/97 H 05/28/20 14:29 Pulse Ox 98 05/28/20 14:29 - Orders/Labs/Meds Orders: Active Orders 24 hr Category Date Time Status EKG Documentation Completion [RC] ASDIRECTED Care 05/28/20 14:36 Active CULTURE URINE [RM] Stat Lab 05/28/20 15:05 Received EKG 12 Lead [EK] Stat Ther 05/28/20 14:36 Ordered Labs: Laboratory Tests 05/28/20 05/28/20 05/28/20 Range/Units 15:05 15:05 15:05 WBC (3.98-10.04) K/mm3 RBC (3.98-5.22) M/mm3 Hgb (11.2-15.7) gm/dl Hct (34.1-44.9) % MCV (79.4-94.8) fl MCH (25.6-32.2) pg MCHC (32.2-35.5) g/dl RDW Std Deviation (36.4-46.3) fL Plt Count (182-369) K/mm3 MPV (9.4-12.3) fl Neut % (Auto) (34.0-71.1) % Lymph % (Auto) (19.3-51.7) % [place] % (Auto) (4.7-12.5) % Eos % (Auto) (0.7-5.8) Baso % (Auto) (0.1-1.2) % Neut # (Auto) (1.56-6.13) K/mm3 Lymph # (Auto) (1.18-3.74) K/mm3 [place] # (Auto) (0.24-0.36) K/mm3 Eos # (Auto) (0.04-0.36) K/mm3 Baso # (Auto) (0.01-0.08) K/mm3 Sodium (136-145) mEq/L Potassium (3.5-5.1) mEq/L Chloride (98-107) mEq/L Carbon Dioxide (21-32) mEq/L Anion Gap (5-15) BUN (7-18) mg/dL Creatinine (0.55-1.02) mg/dL Est Cr Clr Drug Dosing mL/min Estimated GFR (MDRD) (>60) mL/min BUN/Creatinine Ratio (14-18) Glucose (74-106) mg/dL Calcium (8.5-10.1) mg/dL Magnesium (1.8-2.4) mg/dl Total Bilirubin (0.2-1.0) mg/dL AST (15-37) U/L ALT (14-59) U/L Alkaline Phosphatase (46-116) U/L Troponin I (0.00-0.056) ng/mL Total Protein (6.4-8.2) g/dl Albumin (3.4-5.0) g/dl Globulin gm/dL Albumin/Globulin Ratio (1-2) TSH 3rd Generation (0.358-3.74) uIU/mL Urine Color Light yellow (Yellow) Urine Appearance Clear (Clear) Urine pH 5.5 (5.0-8.0) Ur Specific [place] > or = 1.030 (1.005-1.030) Urine Protein Negative (Negative) Urine Glucose (UA) Negative (Negative) Urine Ketones Negative (Negative) Urine Occult Blood 2+ H (Negative) Urine Nitrite Negative (Negative) Urine Bilirubin Negative (Negative) Urine Urobilinogen 0.2 (0.2-1.0) Ur Leukocyte Esterase Trace H (Negative) Urine RBC 0-5 (0-5) /hpf Urine WBC 5-10 H (0-5) /hpf Ur Squamous Epith Cells 0-5 (0-5) /hpf Urine Bacteria Rare (FEW) /hpf Urine Mucus Not seen (FEW) /hpf Urine HCG, Qual Negative (NEGATIVE) Urine Opiates Screen Negative (MKIBBV=054) Ur Buprenorphine Scrn Presumptive positive (CUTOFF=10) Ur Oxycodone Screen Negative (IWS1BB=547) Urine Methadone Screen Negative (HYDHPG=331) Ur Propoxyphene Screen Negative (CWBZPZ=246) Ur Barbiturates Screen Negative (MSLZJW=972) Ur Tricyclics Screen Negative (DQVLVL=959) Ur Phencyclidine Scrn Negative (CUTOFF=25) Ur Amphetamine Screen Negative (DCUMOD=349) U Methamphetamines Scrn Negative (LJSVOA=877) U Benzodiazepines Scrn Negative (XQDGET=245) U Cocaine Metab Screen Negative (QRLGWQ=362) U Marijuana (THC) Screen Negative (CUTOFF=50) 05/28/20 05/28/20 05/28/20 Range/Units 15:13 15:13 15:13 WBC 4.54 (3.98-10.04) K/mm3 RBC 4.46 (3.98-5.22) M/mm3 Hgb 11.9 (11.2-15.7) gm/dl Hct 37.1 (34.1-44.9) % MCV 83.2 (79.4-94.8) fl MCH 26.7 (25.6-32.2) pg MCHC 32.1 L (32.2-35.5) g/dl RDW Std Deviation 41.6 (36.4-46.3) fL Plt Count 187 (182-369) K/mm3 MPV 11.6 (9.4-12.3) fl Neut % (Auto) 64.8 (34.0-71.1) % Lymph % (Auto) 23.6 (19.3-51.7) % [place] % (Auto) 7.9 (4.7-12.5) % Eos % (Auto) 3.3 (0.7-5.8) Baso % (Auto) 0.4 (0.1-1.2) % Neut # (Auto) 2.94 (1.56-6.13) K/mm3 Lymph # (Auto) 1.07 L (1.18-3.74) K/mm3 [place] # (Auto) 0.36 (0.24-0.36) K/mm3 Eos # (Auto) 0.15 (0.04-0.36) K/mm3 Baso # (Auto) 0.02 (0.01-0.08) K/mm3 Sodium 142 (136-145) mEq/L Potassium 3.8 (3.5-5.1) mEq/L Chloride 106 (98-107) mEq/L Carbon Dioxide 26 (21-32) mEq/L Anion Gap 13.8 (5-15) BUN 9 (7-18) mg/dL Creatinine 0.7 (0.55-1.02) mg/dL Est Cr Clr Drug Dosing 118.35 mL/min Estimated GFR (MDRD) > 60 (>60) mL/min BUN/Creatinine Ratio 12.9 L (14-18) Glucose 110 H (74-106) mg/dL Calcium 8.9 (8.5-10.1) mg/dL Magnesium 1.9 (1.8-2.4) mg/dl Total Bilirubin 0.6 (0.2-1.0) mg/dL AST 34 (15-37) U/L ALT 58 (14-59) U/L Alkaline Phosphatase 75 (46-116) U/L Troponin I < 0.017 (0.00-0.056) ng/mL Total Protein 7.6 (6.4-8.2) g/dl Albumin 3.6 (3.4-5.0) g/dl Globulin 4.0 gm/dL Albumin/Globulin Ratio 0.9 L (1-2) TSH 3rd Generation 2.093 (0.358-3.74) uIU/mL Urine Color (Yellow) Urine Appearance (Clear) Urine pH (5.0-8.0) Ur Specific [place] (1.005-1.030) Urine Protein (Negative) Urine Glucose (UA) (Negative) Urine Ketones (Negative) Urine Occult Blood (Negative) Urine Nitrite (Negative) Urine Bilirubin (Negative) Urine Urobilinogen (0.2-1.0) Ur Leukocyte Esterase (Negative) Urine RBC (0-5) /hpf Urine WBC (0-5) /hpf Ur Squamous Epith Cells (0-5) /hpf Urine Bacteria (FEW) /hpf Urine Mucus (FEW) /hpf Urine HCG, Qual (NEGATIVE) Urine Opiates Screen (JZGCZI=238) Ur Buprenorphine Scrn (CUTOFF=10) Ur Oxycodone Screen (TDE7DO=410) Urine Methadone Screen (UDYREQ=048) Ur Propoxyphene Screen (QRNMSJ=645) Ur Barbiturates Screen (TJSSCZ=333) Ur Tricyclics Screen (XXOETA=809) Ur Phencyclidine Scrn (CUTOFF=25) Ur Amphetamine Screen (EIDBPM=280) U Methamphetamines Scrn (YICAXD=485) U Benzodiazepines Scrn (SUUDAB=211) U Cocaine Metab Screen (WFVBTD=902) U Marijuana (THC) Screen (CUTOFF=50) Meds: Medications Discontinued Medications Generic Name Dose Route Start Last Admin Trade Name Freq PRN Reason Stop Dose Admin Lorazepam 0.5 mg 05/28/20 15:03 05/28/20 15:09 Ativan PO 05/28/20 15:04 0.5 mg ONETIME ONE Administration Magnesium Oxide 800 mg 05/28/20 16:00 Magnesium Oxide PO 05/28/20 16:01 ONETIME ONE - Re-Assessments/Exams Free Text/Narrative Re-Assessment/Exam: 05/28/20 15:18 Peers anxious. EKG shows some QTC prolongation borderline. We will give her a gentle dose of Ativan see if this helps check labs to see if the symptoms that can be contributing to this QT prolongation. 05/28/20 16:02 Is doing better after little bit of Ativan 0.5 mg. Her labs look okay her magnesium is borderline low at 1.9 we will give her 800 mg of oral magnesium. And discharge her home with instructions to follow-up in the clinic at the end of this week ever blood pressure recheck and in general to see how she is doing. Departure - Departure Time of Disposition: 16:03 Disposition: Home, Self-Care 01 Clinical Impression: Anxiety, QT prolongation, Urinary tract infection Referrals: PCP,None [Primary Care Provider] - Forms: ED Department Discharge Additional Instructions: Return to the emergency room with any questions problems or worsening symptoms. Follow-up at the end of this week at the hospital clinic for recheck and to see how you are doing. Their phone number is [phone] You have been started on Macrobid, this is an antibiotic as it looks like you may be developing an early urinary tract infection take 1 twice daily for 5 days until all gone. Sepsis Event Note (ED) - Evaluation Sepsis Screening Result: No Definite Risk - Focused Exam Vital Signs: Vital Signs Temp Pulse Resp BP Pulse Ox 05/28/20 14:29 36.6 C 86 16 183/97 H 98 - My Orders Last 24 Hours: My Active Orders 05/28/20 14:36 EKG Documentation Completion [RC] ASDIRECTED EKG 12 Lead [EK] Stat 05/28/20 15:05 CULTURE URINE [RM] Stat - Assessment/Plan Last 24 Hours: My Active Orders 05/28/20 14:36 EKG Documentation Completion [RC] ASDIRECTED EKG 12 Lead [EK] Stat 05/28/20 15:05 CULTURE URINE [RM] Stat
[2020-05-28] MEDS ORDERED: LORazepam 0.5 MG Tab PO ONE (15:03)
[2020-05-28] MEDS ORDERED: Magnesium Oxide 400 MG Tab PO ONE (16:00)
== END 2020-05-28 16:23 | disposition home or self-care (01) ==
LOC: JD.ED 14:17
DX: F41.9 Anxiety disorder, unspecified (principal); N39.0 Urinary tract infection, site not specified; R94.31 Abnormal electrocardiogram [ECG] [EKG]; I10 Essential (primary) hypertension; E66.9 Obesity, unspecified; Z68.36 Body mass index [BMI] 36.0-36.9, adult
CPT/HCPCS: 36415; 80053; 80306; 81001; 81025; 83735; 84443; 84484; 85025; 87086; 87088; 87186; 93005; 99285; A9270; 93010; 99284

== ENCOUNTER 2020-06-21 18:46 | Emergency (ER) | payer MEDICAID ==
[2020-06-21] MEDS ORDERED: FLU VACC QS2020-21(6MOS UP)/PF 60 MCG/0.5 ML SYRINGE IM ONE (19:30)
[2020-06-21] MEDS ORDERED: HYDROmorphone 1 MG/ML Syringe IM ONE (19:53)
--- NOTE | 2020-06-21 19:57 | EDM.PDOC ---
ED HPI GENERAL MEDICAL PROBLEM - General Chief Complaint: General Stated Complaint: TRIPPED OVER TOYS AND INJURED RIBS Time Seen by Provider: 06/21/20 19:33 Source of Information: Reports: Patient, RN Notes Reviewed History Limitations: Reports: No Limitations - History of Present Illness INITIAL COMMENTS - FREE TEXT/NARRATIVE: Patient is a 35-year-old female who presents to the ED for evaluation of a left chest injury. Patient when she was at home roughly 3 hours ago, and she was tripping over some toys that she was trying to tow picker, and she fell into her couch at home, this resulted in a contusion just under her left breast/chest area. She did not take any pain medications before coming to the ER. She denies any medicine allergies. Patient denies any other sick-like symptoms, fever/chills, cough/shortness of breath, nausea/vomiting/diarrhea. Left Breast Pain Score (Numeric/FACES): 8 - Related Data Allergies Allergy/AdvReac Type Severity Reaction Status Date / Time No Known Allergies Allergy Verified 06/21/20 19:04 Home Meds: Home Meds Acetaminophen/HYDROcodone [Alcoa 325-5 MG] 1 tab PO Q6H PRN #15 tablet 06/21/20 [Rx] Past Medical History - Past Health History Medical/Surgical History: Denies Medical/Surgical History HEENT History: Reports: Impaired Vision Cardiovascular History: Reports: Hypertension Other Cardiovascular History: pre eclampsia Gastrointestinal History: Reports: GERD Genitourinary History: Reports: STD, UTI, Recurrent Other Genitourinary History: GONORRHEA, CHLAMYDIA DIRECTOR FAMILY History: Reports: Neurological History: Reports: None Psychiatric History: Reports: Anxiety Endocrine/Metabolic History: Reports: Diabetes, Gestational, Obesity/BMI 30+ Hematologic History: Reports: None Immunologic History: Reports: None Oncologic (Cancer) History: Reports: None Dermatologic History: Reports: None - Infectious Disease History Infectious Disease History: Reports: Other (See Below) Other Infectious Disease History: Gonorrhea, Chlamydia - Past Surgical History HEENT Surgical History: Reports: None Respiratory Surgical History: Reports: None GI Surgical History: Reports: Cholecystectomy Female Surgical History: Reports: Section Endocrine Surgical History: Reports: None Neurological Surgical History: Reports: None Oncologic Surgical History: Reports: None Social & Family History - Family History Family Medical History: No Pertinent Family History - Tobacco Use Tobacco Use Status *Q: Never Tobacco User - Caffeine Use Caffeine Use: Reports: Tea - Recreational Drug Use Recreational Drug Use: No ED ROS GENERAL - Review of Systems Review Of Systems: Comprehensive ROS is negative, except as noted in HPI. ED EXAM, GENERAL - Physical Exam Exam: See Below Exam Limited By: No Limitations General Appearance: Alert, WD/WN, No Apparent Distress Respiratory/Chest: No Respiratory Distress, Lungs Clear, Normal Breath Sounds, No Accessory Muscle Use, Other (left lower anterior chest is tender to palpation) Cardiovascular: Normal Peripheral Pulses, Regular Rate, Rhythm, No Edema Extremities: Normal Inspection, Normal Capillary Refill Neurological: Alert, Oriented, Normal Cognition, No Motor/Sensory Deficits Psychiatric: Normal Affect, Normal Mood Skin Exam: Warm, Dry, Intact, Normal Color, No Rash Course - Vital Signs Last Recorded V/S: Last Vital Signs Temp 97.3 F 06/21/20 19:05 Pulse 89 06/21/20 19:05 Resp 16 06/21/20 19:05 BP 147/92 H 06/21/20 19:05 Pulse Ox 99 06/21/20 19:05 - Orders/Labs/Meds Orders: Active Orders 24 hr Category Date Time Status Influenza Vaccine Charge [RC] .DISCHARGE Care 06/21/20 19:11 Active Chest 2V [CR] Stat Exams 06/21/20 19:09 Taken Meds: Medications Discontinued Medications Generic Name Dose Route Start Last Admin Trade Name Freq PRN Reason Stop Dose Admin Hydromorphone HCl 1 mg 06/21/20 19:53 Dilaudid IM 06/21/20 19:54 ONETIME ONE Influenza Virus Vaccine 1 each 06/21/20 19:10 Pharmacy To Dose - Influenza Vaccine IM 06/21/20 19:11 ONETIME ONE Influenza Virus Vaccine 60 mcg 06/21/20 19:30 Fluzone Quad [id number] Syringe IM 06/21/20 19:31 .ONCE ONE - Re-Assessments/Exams Free Text/Narrative Re-Assessment/Exam: 06/21/20 19:55 Patient's chest x-ray was performed, and demonstrates no sign of a pneumothorax or other life-threatening illness. Likely has a chest contusion I cannot discern any sort of acute fracture or other bony abnormality. Nonetheless we will go ahead and give the patient 1 mg IM injection of Dilaudid for pain management and get her on some pain meds for home use, we will discharge patient home with conservative recommendations. Departure - Departure Time of Disposition: 19:56 Disposition: Home, Self-Care 01 Condition: Good Clinical Impression: Contusion of left chest wall Qualifiers: Encounter type: initial encounter Qualified Code(s): S20.212A - Contusion of left front wall of thorax, initial encounter - Discharge Information *PRESCRIPTION DRUG MONITORING PROGRAM REVIEWED*: Yes *COPY OF PRESCRIPTION DRUG MONITORING REPORT IN PATIENT ALICJA: No Prescriptions: Acetaminophen/HYDROcodone [Alcoa 325-5 MG] 1 tab PO Q6H PRN #15 tablet PRN Reason: Pain Instructions: Contusion, [id number] Referrals: Melissa Flynn NP [Primary Care Provider] - Additional Instructions: You have been evaluated in the ED for your left chest injury. Your x-ray demonstrated no obvious fracture or other bony abnormality, nonetheless you likely have a pretty good contusion of the area causing most of your pain. Please use ice/heat as tolerated to the affected area. You may take Tylenol 500 mg or ibuprofen 600mg q6 hrs for pain relief. Please do so until you have a tolerable level of pain with activity. Do not exceed 4000mg Tylenol or 3200mg ibuprofen in a 24 hour time period. You were given a prescription for a strong pain medication, hydrocodone/acetaminophen 5/325 mg, please take 1 tab every 6 hours as needed for pain not relieved by Tylenol or ibuprofen alone. Please note this medication does contain Tylenol in it, so do not take more than 4000 mg in a 24- hour time span. These medications can be addictive, so please take as few as possible to achieve adequate pain control. These meds can also be quite constipating, recommend that you increase your oral fluid intake and take a stool softener like MiraLAX while taking these medications. Do not drive while taking this medication. Please return to ED if your symptoms should change or worsen. Sepsis Event Note (ED) - Evaluation Sepsis Screening Result: No Definite Risk - Focused Exam Vital Signs: Vital Signs Temp Pulse Resp BP Pulse Ox 06/21/20 19:05 97.3 F 89 16 147/92 H 99 - My Orders Last 24 Hours: My Active Orders 06/21/20 19:09 Chest 2V [CR] Stat 06/21/20 19:11 Influenza Vaccine Charge [RC] .DISCHARGE - Assessment/Plan Last 24 Hours: My Active Orders 06/21/20 19:09 Chest 2V [CR] Stat 06/21/20 19:11 Influenza Vaccine Charge [RC] .DISCHARGE
--- NOTE | 2020-06-22 09:58 | CR ---
Chest: PA and lateral views of the chest were obtained. Comparison: No previous chest imaging is available. Heart size and mediastinum are normal. Lungs are clear with no acute parenchymal change. Bony structures are unremarkable. Impression: 1. Nothing acute is seen on 2 view chest x-ray. Diagnostic code #1
== END 2020-06-21 20:35 | disposition home or self-care (01) ==
LOC: JD.ED 18:46
DX: S20.212A Contusion of left front wall of thorax, initial encounter (principal); I10 Essential (primary) hypertension; Z23 Encounter for immunization; E66.9 Obesity, unspecified; Z68.35 Body mass index [BMI] 35.0-35.9, adult; W01.0XXA Fall on same level from slipping, tripping and stumbling without subsequent striking against object, initial encounter; Y92.009 Unspecified place in unspecified non-institutional (private) residence as the place of occurrence of the external cause
CPT/HCPCS: 71046; 90471; 90686; 96372; 99283; J1170; G0008